=== PATIENT | female | born 1995 | race Caucasian/White ===

== ENCOUNTER 2021-06-08 11:59 | Outpatient (CLI) | payer OTHER, SELFPAY ==
[2021-06-08 12:42] LABS: Basophils Absolute Auto 0.1 K/mm3 (0.0-0.1); Basophils Percent Auto 0.7 % (0.2-1.2); Eosinophils Absolute Auto 0.1 K/mm3 (0-0.3); Eosinophils Percent Auto 1.2 % (0-4.4); Hematocrit 39.4 % (37.0-47.0); Hemoglobin 12.9 g/dL (12.0-15.0); Immature Granulocyte Absolute 0.02 K/mm3 (0.00-0.031); Immature Granulocyte Percent A 0.3 % (0-0.5); Lymphocytes Absolute Auto 2.01 K/mm3 (0.9-3.2); Lymphocytes Percent Auto 26.9 % (18.3-44.2); Mean Corpuscular HGB Conc 32.7 g/dl (32-36); Mean Corpuscular Hemoglobin 30.9 pg (26-34); Mean Corpuscular Volume 94.3 fl (80-100); Mean Platelet Volume 11.2 fl (7.4-10.4); Monocytes Absolute Auto 0.4 K/mm3 (0.1-0.6); Monocytes Percent Auto 5.9 % (2.6-8.5); Neutrophils Absolute Auto 4.9 K/mm3 (1.3-6.7); Platelet Count Result 247 k/mm3 (150-375); Red Blood Count 4.18 M/mm3 (4.2-5.4); White Blood Count 7.5 K/mm3 (4.5-10.0)
[2021-06-08 12:59] LABS: Alanine Aminotransferase 16 U/L (4-35); Albumin Level 4.5 g/dL (3.5-5.1); Alkaline Phosphatase 50 U/L (38-126); Amylase 77 U/L (30-110); Anion Gap 11 mmol/L (8-16); Aspartate Amino Transferase 27 U/L (14-36); Bilirubin,Total 0.5 mg/dL (0.2-1.3); Blood Urea Nitrogen 15 mg/dL (7-17); Calcium 9.3 mg/dL (8.4-10.2); Carbon Dioxide 22 mmol/L (22-30); Chloride 106 mmol/L (98-107); Estimated Glomerular Filt Rate > 60; Glucose 96 mg/dL (65-110); Lipase 61 U/L (23-300); Potassium 3.7 mmol/L (3.4-5.0); Sodium 139 mmol/L (137-145)
== END 2021-06-08 12:00 | disposition home or self-care (01) ==
PROVIDERS: PCP Family Medicine; Visit Provider Physician Assistant
DX: R19.7 Diarrhea, unspecified (principal)
CPT/HCPCS: 36415; 80053; 82150; 83690; 84443; 85025

== ENCOUNTER 2021-09-16 17:31 | Emergency (ER) | payer OTHER, SELFPAY ==
[2021-09-16 17:32] VITALS: BP 131/80; PULSE 110; RESP 20; TEMP 36.8; O2SAT 100
[2021-09-16 18:04] LABS: Appearance Urine Clear (Clear); Bilirubin Urine Negative (Negative); Blood Urine Negative (Negative); Glucose Urine UA Negative (Negative); Ketones Urine Negative (Negative); Leukocyte Esterase Ur Trace LEU/UL (Negative); Nitrate Urine Negative (Negative); Protein Urine Negative (Negative); Urobilinogen Urine 0.2 mg/dL (<2.0)
[2021-09-16 18:14] LABS: Bacteria Urine Trace /hpf; RBC Urine 0-2 /hpf (0-2); Squamous Epithelial Cell Urine Rare /hpf (Few); WBC Urine 0-3 /hpf
[2021-09-16 18:16] LABS: Add Urine Microscopic? YES; Color Urine Light Yellow (Yellow)
--- NOTE | 2021-09-16 18:45 | ED.GENADULT ---
HPI - General Adult General Chief complaint: Urogenital-Female Stated complaint: flank pain Time Seen by Provider: 09/16/21 17:37 History of Present Illness HPI narrative: 26-year-old female with history of urinary tract infection presenting to the emergency department for evaluation of bilateral flank pain. Patient states that the symptoms did start approximately 2 days ago. Patient does also describe lower extremity body aches. Patient denies any fever. Patient denies any cough or shortness of breath. Patient denies any falls or injuries. Patient denies any change in physical activity. Patient declined any medications for pain control at this time. Related Data Home Medications Medication Instructions Recorded Confirmed norethindrone 1 mg-ethinyl 1 tablet PO DAILY 05/04/19 06/08/21 estradiol 20 mcg (21)-iron 75 mg (7) tablet (05/10 (28)) spironolactone 100 mg tablet 100 mg PO DAILY 09/23/19 06/08/21 norethindrone acetate 1 mg-ethinyl tablet PO 08/17/21 estradiol 20 mcg tablet Allergies Allergy/AdvReac Type Severity Reaction Status Date / Time latex Allergy Unknown Rash Verified 08/17/21 11:45 Review of Systems Review of Systems: CONSTITUTIONAL: Denies fever, chills, or sweats. EYES: Denies visual changes, redness, or discharge. ENT: Denies rhinorrhea, congestion, sore throat, or otalgia. CARDIOVASCULAR: Denies chest pain, palpitations, or edema. RESPIRATORY: Denies cough or dyspnea. GASTROINTESTINAL: See HPI GENITOURINARY: See HPI SKIN: Denies rash or itching. MUSCULOSKELETAL: Denies back pain, joint pain, or myalgia. NEUROLOGIC: Denies headache, numbness, or weakness. All systems reviewed & are unremarkable except as noted in HPI and below PMFSH Social History Social History (Updated 08/17/21 @ 11:44 by ROLANDO Bueno) Alcohol intake: current Exam Narrative: APPEARANCE: Well appearing, no pain, no distress, well-nourished. HEAD: normocephalic, atraumatic. EYES: PERRLA/EOMI, conjunctivae clear. NECK: Supple. No adenopathy, no masses. RESPIRATORY: Airway patent, respirations nonlabored. Clear to auscultation bilaterally, no rales, rhonchi, wheezing. CARDIOVASCULAR: Regular rate and rhythm without murmurs rubs or gallops. ABDOMINAL: Soft, nontender, nondistended, normal bowel sounds MUSCULOSKELETAL: Bilateral lateral flank pain more tenderness on the right than left. No significant CVA tenderness NEURO: Alert. Cranial nerves II through XII intact. Good gait. Good coordination SKIN: Warm, dry. Normal Color Course Course Emergency Course: UA did show some leukoesterase but no other evidence of a urinary tract infection. Urine culture is pending. Patient has no leukocytosis. Normal CMP including creatinine clearance. Patient initially requested a CT scan I did explain that she does not qualify for a CT scan with IV contrast. I also explained that I did not feel that the risk of radiation. I did offer a CT scan and after patient was educated on the risks and benefits she ultimately declined to have the scan. Patient was educated on reasons to return to the emerge department. And on the importance of close follow-up with her primary care physician. All question concerns were addressed. Patient was well-appearing at time of discharge from the emergency department. Vital Signs Vital signs: Vital Signs Temperature 98.3 F 09/16/21 17:32 Pulse Rate 110 H 09/16/21 17:32 Respiratory Rate 20 09/16/21 17:32 Blood Pressure 131/80 09/16/21 17:32 Pulse Oximetry 100 09/16/21 17:32 Oxygen Delivery Room Air 09/16/21 17:32 Temperature 98.3 F 09/16/21 17:32 Pulse Rate 68 09/16/21 20:56 Respiratory Rate 14 09/16/21 20:56 Blood Pressure 140/88 09/16/21 20:56 Pulse Oximetry 96 09/16/21 20:56 Oxygen Delivery Room Air 09/16/21 17:32 Medical Decision Making Vital Signs Vital Signs: Vital Signs Temperature 98.3 F 09/16/21 17:32 Pulse Rate 110
[2021-09-16] MEDS: SODIUM CHLORIDE 0.9% IV 1,000 ML 999 ML IV CONT (19:05)
--- NOTE | 2021-09-16 19:10 | PC.NURSE ---
Patient report given to MARYCHUY Eckert. All questions answered and care of patient transferred.
[2021-09-16 19:17] LABS: Basophils Percent Auto 0.4 % (0.2-1.2); Eosinophils Absolute Auto 0.1 K/mm3 (0-0.3); Eosinophils Percent Auto 0.7 % (0-4.4); Hematocrit 37.8 % (37.0-47.0); Hemoglobin 12.5 g/dL (12.0-15.0); Immature Granulocyte Absolute 0.02 K/mm3 (0.00-0.031); Immature Granulocyte Percent A 0.2 % (0-0.5); Lymphocytes Absolute Auto 2.42 K/mm3 (0.9-3.2); Lymphocytes Percent Auto 28.6 % (18.3-44.2); Mean Corpuscular HGB Conc 33.1 g/dl (32-36); Mean Corpuscular Hemoglobin 30.5 pg (26-34); Mean Corpuscular Volume 92.2 fl (80-100); Monocytes Absolute Auto 0.6 K/mm3 (0.1-0.6); Monocytes Percent Auto 6.8 % (2.6-8.5); Neutrophils Absolute Auto 5.4 K/mm3 (1.3-6.7); Neutrophils Percent Auto 63.3 % (45.5-73.1); Platelet Count Result 278 k/mm3 (150-375); Red Cell Distribution Width 11.9 % (11.5-14.5); White Blood Count 8.5 K/mm3 (4.5-10.0)
[2021-09-16 19:27] LABS: Alanine Aminotransferase 16 U/L (6-35); Albumin Level 4.5 g/dL (3.5-5.1); Alkaline Phosphatase 61 U/L (38-126); Anion Gap 5 mmol/L (8-16); Aspartate Amino Transferase 27 U/L (14-36); Bilirubin,Total 0.5 mg/dL (0.2-1.3); Blood Urea Nitrogen 13 mg/dL (7-17); Calcium 8.9 mg/dL (8.4-10.2); Carbon Dioxide 26 mmol/L (22-30); Chloride 106 mmol/L (98-107); Estimated CRCL calculation 80 ml/min; Estimated Glomerular Filt Rate > 60; Glucose 90 mg/dL (65-110); Lactic Acid Reflex 0.7 mmol/L (0.7-2.0); Potassium 3.8 mmol/L (3.4-5.0); Sodium 137 mmol/L (137-145)
[2021-09-16 19:33] VITALS: BP 123/76; PULSE 91; RESP 16; O2SAT 97
[2021-09-16 19:55] LABS: SARS-CoV-2 RNA PCR Negative
[2021-09-16] MEDS: KETOROLAC 15 MG/ML VIAL (*BKC) IV PUSH (20:36)
[2021-09-16 20:56] VITALS: BP 140/88; PULSE 68; RESP 14; O2SAT 96
== END 2021-09-16 20:57 | disposition home or self-care (01) ==
PROVIDERS: Emergency Provider Emergency Medicine; PCP Family Medicine
DX: R10.9 Unspecified abdominal pain (principal); Z20.822 Contact with and (suspected) exposure to COVID-19
CPT/HCPCS: 36415; 80053; 81001; 81025; 83605; 85025; 96361; 96374; 99284; C9803; J1885; J7030; U0003; U0005

== ENCOUNTER 2022-10-14 15:33 | Outpatient (CLI) | payer OTHER, SELFPAY ==
--- NOTE | ~2022-10-14 | XR_ITS ---
EXAM: XR thoracic spine 3V DATE: 10/14/2022 15:52 HISTORY: M54.9 - Dorsalgia, unspecified . COMPARISON: 08/19/2014. FINDINGS: Vertebral body alignment intact. Vertebral body heights preserved. No disc space narrowing . No traumatic malalignment or fracture. Visualized lung parenchyma is clear. IMPRESSION: Normal thoracic spine radiograph findings. Reviewed, dictated and finalized at location K.
--- NOTE | ~2022-10-14 | XR_ITS ---
EXAM: XR lumbar spine 2-3V DATE: 10/14/2022 15:51 HISTORY: LOW BACK PAIN X 1 MONTH . COMPARISON: 08/19/2014. FINDINGS: 5 nonrib-bearing lumbar-type vertebral bodies. Pedicles intact. Normal vertebral body alig nment. Lumbar spine straightening as can occur with positioning or muscle spasm, unchanged from the p rior study. Vertebral body heights preserved. Disc spaces maintained. Normal facets and posterior al ments. No fracture or dislocation. IMPRESSION: Lumbar spine straightening, otherwise normal lumbar spine radiograph findings. Reviewed, dictated and finalized at location K. IMPRESSION: Lumbar spine straightening, otherwise normal lumbar spine radiograp h findings.
== END 2022-10-14 15:34 | disposition home or self-care (01) ==
PROVIDERS: PCP Family Medicine; Visit Provider Physician Assistant
DX: M54.50 Low back pain, unspecified (principal); M54.9 Dorsalgia, unspecified
CPT/HCPCS: 72072; 72100

== ENCOUNTER 2022-11-14 17:32 | Outpatient (CLI) | payer OTHER, SELFPAY | END 2022-11-14 17:33 | disposition home or self-care (01) | LOC: ANHLAB 17:33 | PROVIDERS: PCP Family Medicine; Visit Provider Obstetrics & Gynecology | DX: O20.0 Threatened abortion (principal) | CPT/HCPCS: 36415; 84702 ==

== ENCOUNTER 2022-11-16 07:40 | Outpatient (CLI) | payer OTHER, SELFPAY ==
[2022-11-16 08:27] LABS: Appearance Urine Cloudy (Clear); Bacteria Urine None Seen /hpf; Bilirubin Urine Negative (Negative); Blood Urine Negative (Negative); Color Urine Yellow (Yellow); Glucose Urine UA Negative (Negative); Ketones Urine Negative (Negative); Leukocyte Esterase Ur Negative LEU/UL (Negative); Nitrate Urine Negative (Negative); Non Pathogenic Casts 0-2; Protein Urine Negative (Negative); RBC Urine 0-2 /hpf (0-2); Specific Grav Ur 1.017 (1.001-1.035); Squamous Epithelial Cell Urine Occasional /hpf (Few); Urobilinogen Urine 0.2 mg/dL (<2.0); WBC Urine 0-5 /hpf
[2022-11-16 08:42] LABS: Add Urine Microscopic? YES
== END 2022-11-16 07:41 | disposition home or self-care (01) ==
PROVIDERS: PCP Family Medicine; Visit Provider Obstetrics & Gynecology
DX: O20.0 Threatened abortion (principal); R30.0 Dysuria; Z3A.00 Weeks of gestation of pregnancy not specified
CPT/HCPCS: 36415; 81001; 84702

== ENCOUNTER 2022-12-04 10:11 | Outpatient (CLI) | payer OTHER, SELFPAY ==
[2022-12-04 11:07] LABS: Basophils Percent Auto 0.4 % (0.2-1.2); Eosinophils Percent Auto 0.3 % (0-4.4); Hematocrit 36.7 % (37.0-47.0); Hemoglobin 12.1 g/dL (12.0-15.0); Immature Granulocyte Absolute 0.06 K/mm3 (0.00-0.031); Immature Granulocyte Percent A 0.5 % (0-0.5); Lymphocytes Absolute Auto 2.03 K/mm3 (0.9-3.2); Lymphocytes Percent Auto 18.3 % (18.3-44.2); Mean Corpuscular Hemoglobin 31.6 pg (26-34); Mean Corpuscular Volume 95.8 fl (80-100); Mean Platelet Volume 11.1 fl (7.4-10.4); Monocytes Absolute Auto 0.4 K/mm3 (0.1-0.6); Monocytes Percent Auto 3.9 % (2.6-8.5); Neutrophils Absolute Auto 8.5 K/mm3 (1.3-6.7); Neutrophils Percent Auto 76.6 % (45.5-73.1); Platelet Count Result 267 k/mm3 (150-375); Red Blood Count 3.83 M/mm3 (4.2-5.4); Red Cell Distribution Width 11.6 % (11.5-14.5); White Blood Count 11.1 K/mm3 (4.5-10.0)
[2022-12-04 11:58] LABS: HIV 1/2 Ab P24 Ag Result Negative (Negative)
[2022-12-04 13:54] LABS: Rapid Plasma Reagin Non-Reactive (NonReactive)
[2022-12-04 14:44] LABS: Hepatitis B Surface Antigen Negative (Negative); Rubella IgG Antibody 9.7 IU/ML
== END 2022-12-04 10:12 | disposition home or self-care (01) ==
LOC: ANHLAB 10:14
PROVIDERS: PCP Family Medicine; Visit Provider Obstetrics & Gynecology
DX: N94.89 Other specified conditions associated with female genital organs and menstrual cycle (principal)
CPT/HCPCS: 36415; 84702; 85025; 86592; 86644; 86703; 86747; 86762; 86787; 86850; 86900; 86901; 87086; 87088; 87340; G0432

== ENCOUNTER 2022-12-10 13:06 | Outpatient (CLI) | payer OTHER, SELFPAY ==
--- NOTE | ~2022-12-10 | US_ITS ---
EXAMINATION: US OB <=14 wk fetus w TV DATE: 12/10/2022 13:58 INDICATION: First trimester dating and viability assessment TECHNIQUE: Real-time pelvic transabdominal and transvaginal ultrasound was performed. COMPARISON: None. FINDINGS: The uterus measures 11.1 x 7.5 x 6.6 cm. The measured cervical length is 3.7 cm. There is a n intrauterine gestational sac. A yolk sac is identified. heart motion is identified measuring 165 beats per minute (bpm) by M-mode Doppler. The crown rump length measures 2.2 cm, which hailey elates with an estimated gestational age of 8 weeks and 6 day(s) (+/-) 6 day(s). The right ovary measures 2.3 x 1.3 x 2.0 cm. The left ovary measures 3.9 x 1.8 x 1.9 cm. There is nor mal vascular flow in the ovaries. There is no free fluid in the pelvis. IMPRESSION: 1. Live intrauterine with an estimated gestational age of 8 weeks and 6 day(s) (+/-) 6 day( s) and an estimated delivery date of 07/16/2023. Reviewed, dictated and finalized at location A. IMPRESSION: 1. Live intrauterine with an estimated gestational age of 8 weeks and 6 day(s) (+/-) 6 day(s) and an estimated delivery date of 07/16/2023.
== END 2022-12-10 13:07 | disposition home or self-care (01) ==
LOC: ANHIMG 13:08
PROVIDERS: PCP Family Medicine; Visit Provider Obstetrics & Gynecology
DX: Z36.87 Encounter for antenatal screening for uncertain dates (principal); N94.89 Other specified conditions associated with female genital organs and menstrual cycle; Z3A.08 8 weeks gestation of pregnancy
CPT/HCPCS: 76801; 76817

== ENCOUNTER 2022-12-27 10:35 | Outpatient (CLI) | payer OTHER, SELFPAY | END 2022-12-27 10:36 | disposition home or self-care (01) | LOC: ANHLAB 10:37 | PROVIDERS: PCP Family Medicine; Visit Provider Obstetrics & Gynecology | DX: Z34.90 Encounter for supervision of normal pregnancy, unspecified, unspecified trimester (principal); R30.0 Dysuria | CPT/HCPCS: 87086 ==

== ENCOUNTER 2023-02-21 09:31 | Outpatient (CLI) | payer OTHER, SELFPAY ==
--- NOTE | ~2023-02-21 | US_ITS ---
EXAMINATION: US OB /maternal detail DATE: 02/21/2023 10:34 INDICATION: Encounter for supervision of normal TECHNIQUE: Multiple obstetric sonographic images performed. FINDINGS: Comparison to ultrasound dated 12/10/2022 There is a single living fetus in breech presentation. The placenta is anterior without placenta pre via. Placental margin to the cervix is 4.2 cm. Amniotic fluid volume is subjectively normal. cardiac activity and movement is noted with a heart rate of 136 beats per minute. The following anatomy was identified as normal: 4 chamber heart 3 vessel cord cord insertion kidneys urinary bladder stomach spine diaphragm ventricles cisterna magna cerebellum The following biometric data were obtained: BPD: 43mm corresponds to gestational age 19 weeks 0 days. Head circumference: 168 mm corresponds to gestational age 19 weeks 3 days. Abdominal circumference: 146 mm corresponds to gestational age 19 weeks 6 days. Femur length: 31 mm corresponds to gestational age 19 weeks 3 days. Head circumference to abdominal circumference ratio: 0.15 (normal range for expected gestational age is 1.08-1.26). Estimated weight: 306 grams +/- 46 grams using Hadlock method 68.1%. IMPRESSION: 1: Single living intrauterine with an estimated gestational age of 19weeks 2days by initial ultrasound measurements, with an EDC of 07/16/2023 in breech presentation. 2. Normal survey. Reviewed, dictated and finalized at location A. IMPRESSION: 1: Single living intrauterine with an estimated gestational age of 19 weeks 2days by initial ultrasound measurements, with an EDC of 07/16/2023 in ry ech presentation. 2. Normal survey.
== END 2023-02-21 09:32 | disposition home or self-care (01) ==
LOC: ANHIMG 09:35
PROVIDERS: PCP Family Medicine; Visit Provider Student in an Organized Health Care Education/Training Program
DX: Z34.90 Encounter for supervision of normal pregnancy, unspecified, unspecified trimester (principal); Z3A.00 Weeks of gestation of pregnancy not specified
CPT/HCPCS: 76805

== ENCOUNTER 2023-04-19 08:13 | Outpatient (CLI) | payer OTHER, SELFPAY ==
[2023-04-19 09:46] LABS: Basophils Percent Auto 0.4 % (0.2-1.2); Eosinophils Absolute Auto 0.1 K/mm3 (0-0.3); Eosinophils Percent Auto 0.7 % (0-4.4); Hematocrit 33.1 % (37.0-47.0); Hemoglobin 10.7 g/dL (12.0-15.0); Immature Granulocyte Absolute 0.13 K/mm3 (0.00-0.031); Immature Granulocyte Percent A 1.4 % (0-0.5); Mean Corpuscular HGB Conc 32.3 g/dl (32-36); Mean Corpuscular Hemoglobin 31.1 pg (26-34); Mean Corpuscular Volume 96.2 fl (80-100); Mean Platelet Volume 11.4 fl (7.4-10.4); Monocytes Absolute Auto 0.5 K/mm3 (0.1-0.6); Monocytes Percent Auto 5.3 % (2.6-8.5); Neutrophils Absolute Auto 6.8 K/mm3 (1.3-6.7); Neutrophils Percent Auto 72.2 % (45.5-73.1); Platelet Count Result 234 k/mm3 (150-375); Red Blood Count 3.44 M/mm3 (4.2-5.4); Red Cell Distribution Width 12.7 % (11.5-14.5); White Blood Count 9.5 K/mm3 (4.5-10.0)
[2023-04-19 10:01] LABS: Glucose 1 Hour PP 50gm Dose 106 mg/dL
[2023-04-19 10:45] LABS: HIV 1/2 Ab P24 Ag Result Negative (Negative)
== END 2023-04-19 08:14 | disposition home or self-care (01) ==
LOC: ANHLAB 08:15
PROVIDERS: PCP Family Medicine; Visit Provider Obstetrics & Gynecology
DX: Z34.90 Encounter for supervision of normal pregnancy, unspecified, unspecified trimester (principal); Z3A.00 Weeks of gestation of pregnancy not specified
CPT/HCPCS: 36415; 82947; 85025; 86703; G0432

== ENCOUNTER 2023-05-15 12:48 | Outpatient (CLI) | payer OTHER, SELFPAY | END 2023-05-15 12:49 | disposition home or self-care (01) | LOC: ANHLAB 12:49 | PROVIDERS: PCP Family Medicine; Visit Provider Obstetrics & Gynecology | DX: O26.899 Other specified pregnancy related conditions, unspecified trimester (principal); R35.0 Frequency of micturition; Z3A.00 Weeks of gestation of pregnancy not specified | CPT/HCPCS: 87086 ==

== ENCOUNTER 2023-06-20 09:43 | Outpatient (CLI) | payer OTHER, SELFPAY ==
--- NOTE | ~2023-06-20 | US_ITS ---
EXAMINATION: US OB follow up DATE: 06/20/2023 INDICATION: Contracture for supervision of normal TECHNIQUE: Real-time ultrasound of the pelvis was performed. The interpreting radiologist was not pre sent for the study. COMPARISON: 02/21/2023 FINDINGS: There is a single living fetus in vertex presentation. The placenta is anterior. heart rate is 144 beats per minute (bpm). The amniotic fluid index is 7.0 cm, which is normal (5th%-95%: 7.7-24.9 cm at 36 weeks estimated gestational age). The following biometric data were obtained: BPD: 8.8 cm -> 35 weeks 5 days Head circumference: 32.5 cm -> 36 weeks 6 days Abdominal circumference: 33.6 cm -> 37 weeks 4 days Femur length: 7.0 cm -> 36 weeks 0 days These measurements are concordant. Head circumference to abdominal circumference ratio: 0.97 (normal range 0.92-1.06). Estimated weight: 3049 g (+/-) 457 g or 6 lbs. 12 oz. (+/-) 1 lb. 0 oz. IMPRESSION: 1. Single living fetus in vertex presentation with heart rate of 144 bpm. 2. Oligohydramnios with amniotic fluid index of 7.0 cm (5th%-95%: 7.7-24.9 cm at 36 weeks estimated g estational age). 3. Estimated weight is 68th percentile by Hadlock criteria when 07/16/23 is used as the estimate d date of delivery (BONNY). Please correlate with clinical information or earlier ultrasounds for most accurate BONNY. Reviewed, dictated and finalized at location B. [employer] IMPRESSION: 1. Single living fetus in vertex presentation with heart rate of 144 bpm. 2. Oligohydramnios with amniotic fluid index of 7.0 cm (5th%-95%: 7.7-24.9 cm a t 36 weeks estimated gestational age). 3. Estimated weight is 68th percentile by Hadlock criteria when 07/16/23 i s used as the estimated date of delivery (BONNY). Please correlate with clinical information or earlier ultrasounds for most accurate BONNY.
== END 2023-06-20 09:44 | disposition home or self-care (01) ==
LOC: ANHIMG 09:44
PROVIDERS: PCP Family Medicine; Visit Provider Obstetrics & Gynecology
DX: Z34.90 Encounter for supervision of normal pregnancy, unspecified, unspecified trimester (principal)
CPT/HCPCS: 76816

== ENCOUNTER 2023-06-27 13:49 | Outpatient (CLI) | payer OTHER, SELFPAY ==
--- NOTE | ~2023-06-27 | US_ITS ---
EXAMINATION: US OB BPP wo non-stress DATE: 06/27/2023 15:19 INDICATION: Encounter for supervision of normal during third trimester TECHNIQUE: Real-time pelvic ultrasound was performed. The interpreting radiologist was not present fo r the study. COMPARISON: 06/20/2023 FINDINGS: There is a single living fetus in vertex presentation. The placenta is anterior. heart rate is 132 beats per minute (bpm). Normal amniotic fluid index of 8.8 cm (5th%-95%: 7.5-24.4 cm at 37 weeks estimated gestational age) Biophysical profile performed by the technologist: breathing (30 sec sustained breathing in 30 minutes): 2 out of 2 movement (3 gross body movements in 30 minutes): 2 out of 2 tone (one episode of fnagkkj-hmcxsqoli-pprjdub limb movement): 2 out of 2 Amniotic fluid pocket (2 cm): 2 out of 2 Total score: 8 out of 8 IMPRESSION: 1. Single living fetus in vertex presentation with heart rate of 132 bpm. 2. Biophysical profile 8 out of 8. 3. Normal amniotic fluid index of 8.8 cm. Reviewed, dictated and finalized at location A. 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
== END 2023-06-27 13:50 | disposition home or self-care (01) ==
LOC: ANHIMG 13:51
PROVIDERS: PCP Family Medicine; Visit Provider Obstetrics & Gynecology
DX: Z34.90 Encounter for supervision of normal pregnancy, unspecified, unspecified trimester (principal)
CPT/HCPCS: 76819

== ENCOUNTER 2023-07-08 16:51 | Inpatient (IN) | payer OTHER, SELFPAY ==
[2023-07-08] VITALS (15 sets, daily range): BP systolic 99–132; BP diastolic 59–87; PULSE 76–111; RESP 16–18; TEMP 36.5; BMI 29.5
--- NOTE | 2023-07-08 17:09 | LDADM ---
This patient, Adrianna Siddiqi, was admitted to Labor/Delivery/Recovery 104 on 07/08/23 at 15:51. Plans for labor, pain management and were discussed with patient. Patient/family oriented to hospital policies and general routines including ID bracelet, bed and alarms, visiting hours, pain management, procedures, bathroom and other care routines, personal items, smoking policy, room service/diet and guest tray routines, security routines, and visiting hours. Patient/Family are encouraged to report perceived risks to care and to ask questions if they do not understand what they are told or what they should do. See OBIX for further documentation.
[2023-07-08 17:19] LABS: Basophils Percent Auto 0.4 % (0.2-1.2); Eosinophils Percent Auto 0.4 % (0-4.4); Hematocrit 35.1 % (37.0-47.0); Hemoglobin 11.7 g/dL (12.0-15.0); Immature Granulocyte Absolute 0.18 K/mm3 (0.00-0.031); Immature Granulocyte Percent A 1.8 % (0-0.5); Lymphocytes Absolute Auto 2.24 K/mm3 (0.9-3.2); Lymphocytes Percent Auto 22.6 % (18.3-44.2); Mean Corpuscular HGB Conc 33.3 g/dl (32-36); Mean Corpuscular Hemoglobin 31.4 pg (26-34); Mean Corpuscular Volume 94.1 fl (80-100); Mean Platelet Volume 12.6 fl (7.4-10.4); Monocytes Absolute Auto 0.7 K/mm3 (0.1-0.6); Monocytes Percent Auto 7.5 % (2.6-8.5); Neutrophils Absolute Auto 6.7 K/mm3 (1.3-6.7); Neutrophils Percent Auto 67.3 % (45.5-73.1); Platelet Count Result 183 k/mm3 (150-375); Red Blood Count 3.73 M/mm3 (4.2-5.4); Red Cell Distribution Width 13.1 % (11.5-14.5); White Blood Count 9.9 K/mm3 (4.5-10.0)
[2023-07-08] MEDS: DINOPROSTONE 10 MG VAG INSERT VAGINAL (17:35)
--- NOTE | 2023-07-08 17:48 | PC.NURSE ---
Patient has history of HSV2. Patient states her significant other is aware and she has never had an outbreak. Patient currently denies any pain, itching, or tingling. Bright light exam performed. No outbreaks noted at this time.
--- NOTE | 2023-07-08 18:39 | WPDANESEPP ---
Anes - Eval Pre Procedure Procedure: Labor epidural Date/Time: 07/08/23 18:39 Surgeon: Bronson Preop Diagnosis: Abdominal pain with contractions Pre Op Diagnosis: iol Patient Data Age: 28 Gender: F Height: 1.63 m Weight: 78 kg Last Vital Signs Pulse 97 07/08/23 18:30 BP 108/71 07/08/23 18:30 O2 Del Method Room Air 07/08/23 17:07 Allergies Allergy/AdvReac Type Severity Reaction Status Date / Time latex Allergy Unknown Rash Verified 07/08/23 17:19 Home Medications Medication Instructions Recorded Confirmed Type valacyclovir 500 mg tablet 500 mg PO Q12H #90 tabs 06/18/23 07/01/23 Rx (Valtrex) sertraline 50 mg tablet See Rx Instructions .Route 06/26/23 07/01/23 Rx .COMPLEX #90 tabs vits no.126-ferrous fum 1 tablet PO DAILY 07/01/23 07/01/23 History 28 mg iron-folic acid 800 mcg tablet (Classic ) Laboratory Tests 07/08/23 17:02 WBC 9.9 K/mm3 (4.5-10.0) RBC 3.73 L M/mm3 (4.2-5.4) Hgb 11.7 L g/dL (12.0-15.0) Hct 35.1 L % (37.0-47.0) MCV 94.1 fl (80-100) MCH 31.4 pg (26-34) MCHC 33.3 g/dl (32-36) RDW 13.1 % (11.5-14.5) Plt Count 183 k/mm3 (150-375) MPV 12.6 H fl (7.4-10.4) Immature Gran % (Auto) 1.8 H % (0-0.5) Neut % (Auto) 67.3 % (45.5-73.1) Lymph % (Auto) 22.6 % (18.3-44.2) [place] % (Auto) 7.5 % (2.6-8.5) Eos % (Auto) 0.4 % (0-4.4) Baso % (Auto) 0.4 % (0.2-1.2) Lymph # (Auto) 2.24 K/mm3 (0.9-3.2) [place] # (Auto) 0.7 H K/mm3 (0.1-0.6) Eos # (Auto) 0.0 K/mm3 (0-0.3) Baso # (Auto) 0.0 K/mm3 (0.0-0.1) Abs Immat Gran (auto) 0.18 H K/mm3 (0.00-0.031) Absolute Neuts (auto) 6.7 K/mm3 (1.3-6.7) Absolute Nucleated RBC 0.000 K/mm3 (0.0-0.012) Nucleated RBC % 0.0 % (0.0-0.2) RPR Pending Blood Type A Positive Antibody Screen Pending : gestational age HCG: positive Patient hx anesthesia problems: none Family hx anesthesia problems: none Results Review: All pre-operative results and documents have been reviewed as part of the pre-operative evaluation. [facility] Past Medical History Medical History Anxiety Ganglion, left wrist Generalized headaches HSV-2 (herpes simplex virus 2) infection Menorrhagia with regular cycle Pyelonephritis Surgical History Surgical History H/O colposcopy with cervical biopsy normal per pt Family History Family History Grandparent Breast cancer Carcinoma of colon Social History Social History Smoking status: Former smoker Tobacco type: e-cigarettes/vaping Smoking end date: 06/19/22 Alcohol intake: never Substance use: never Substance use type: does not use Do You Feel Safe in your Home?: Yes Lack of Transportation: No Lack of Food: Never True Current Housing: I Have Housing Concerned About Future Housing: No Difficulty Paying Gas/Electric Bills: No Difficulty Paying for Meds: No Currently Unemployed: No Education: Associate Degree Difficulty w/ Childcare or Family Care: No Living arrangements: with family Occupation/Education: occupation Additional occupation/education comments: [employer] Gender identity (if verbalized by the patient): Female Sexual Orientation (if Verbalized by the Patient): Straight or Heterosexual Spiritual care concerns: No Exam Day of Procedure 07/08/23 18:39 Patient weight: overweight
--- NOTE | 2023-07-08 20:19 | PM.IMHP ---
H&P: HPI History of Present Illness Date/Time: 07/08/23 20:19 Chief Complaint: Induction of labor Narrative: Adrianna is a 28yo @ 39.0wks who presented for elective IOL. She reports good movement. No vb or lof. She has had regular . Her is complicated by: - HSV 2 on daily suppression - Depression on zoloft - Rubella equivocal - H/o UTI/pyelo - Chronic headaches Review of Systems Constitutional: Constitutional: Denies chills, Denies fever(s) and Denies headache(s) Eyes: Eyes: Denies change in vision ENT: Denies headache(s) Cardiovascular: Cardiovascular: Denies chest pain and Denies dyspnea Respiratory: Respiratory: Denies dyspnea Genitourinary: Genitourinary: Denies abnormal vaginal bleeding and Denies vaginal discharge Neurologic: Denies headache(s) Psychiatric: Psychiatric: Denies anxiety and Denies depression PMFSH Past Medical History Medical History Anxiety Ganglion, left wrist Generalized headaches HSV-2 (herpes simplex virus 2) infection Menorrhagia with regular cycle Pyelonephritis Surgical History Surgical History H/O colposcopy with cervical biopsy normal per pt Family History Family History Grandparent Breast cancer Carcinoma of colon Social History Social History Smoking status: Former smoker Tobacco type: e-cigarettes/vaping Smoking end date: 06/19/22 Alcohol intake: never Substance use: never Substance use type: does not use Do You Feel Safe in your Home?: Yes Lack of Transportation: No Lack of Food: Never True Current Housing: I Have Housing Concerned About Future Housing: No Difficulty Paying Gas/Electric Bills: No Difficulty Paying for Meds: No Currently Unemployed: No Education: Associate Degree Difficulty w/ Childcare or Family Care: No Living arrangements: with family Occupation/Education: occupation 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 Gender identity (if verbalized by the patient): Female Sexual Orientation (if Verbalized by the Patient): Straight or Heterosexual Spiritual care concerns: No Meds Home Medications and Allergies Home Medications Medication Instructions Recorded Confirmed Type valacyclovir 500 mg tablet 500 mg PO Q12H #90 tabs 06/18/23 07/01/23 Rx (Valtrex) sertraline 50 mg tablet See Rx Instructions .Route 06/26/23 07/01/23 Rx .COMPLEX #90 tabs vits no.126-ferrous fum 1 tablet PO DAILY 07/01/23 07/01/23 History 28 mg iron-folic acid 800 mcg tablet (Classic ) Allergies Allergy/AdvReac Type Severity Reaction Status Date / Time latex Allergy Unknown Rash Verified 07/08/23 17:19 Vital Signs Vital Signs - 24 hr 07/08/23 17:06 07/08/23 17:15 07/08/23 17:39 Temperature Pulse Rate 111 H 96 98 Respiratory Rate Blood Pressure 132/84 117/78 99/59 L Oxygen Delivery 07/08/23 18:00 07/08/23 18:30 07/08/23 19:00 Temperature 97.7 F Pulse Rate 83 97 78 Respiratory Rate 16 16 16 Blood Pressure 120/78 108/71 113/72 Oxygen Delivery 07/08/23 19:30 07/08/23 20:00 07/08/23 17:07 Temperature Pulse Rate 77 98 Respiratory Rate 18 Blood Pressure 119/76 106/87 Oxygen Delivery Room Air Exam Const: General: cooperative, healthy appearing, comfortable and no acute distress Nutritional Appearance: obese Orientation/consciousness: patient oriented x3 Resp: Effort & Inspection: normal respiratory effort Cardio: Rate: regular rate GI: GI Palp: No abdominal tenderness : Other: FHT's: 150's/ mod vanessa/ + accels/ no decels - cat 1 TOCO: irregular ctxs q5min Cervix: 2/50/-2 Membranes: intact Presentation: cephalic Skin: General skin exam: normal color Neuro
[2023-07-09] VITALS (201 sets, daily range): BP systolic 90–137; BP diastolic 44–86; PULSE 55–144; RESP 6–16; TEMP 36.3–37.3; O2SAT 93–100
[2023-07-09] MEDS: LACTATED RINGERS 1,000 ML 125 ML IV CONT ×2 (02:38→10:28)
[2023-07-09] MEDS: OXYTOCIN 30 UNITS/NS 500 ML 30 UNITS/500 ML BAG IV CONT (04:02)
[2023-07-09] MEDS: ONDANSETRON INJ 4 MG/2 ML VIAL IV PUSH (05:46)
--- NOTE | 2023-07-09 07:16 | PM.OBPNLAB ---
Pain Control Date/time seen: 07/09/23 07:16 Pain control: epidural Pelvic Exam Dilation (cm): 7 Effacement (%): 90 station: -1 Amniotic membrane status: Ruptured (SROM, clear 0130) Contractions Monitor mode: Internal Contraction frequency: 3 Status status: Category ll (occasional variable) Assessment and Plan Pitocin rate (mU/min): 6 Assessment: active labor Plan: continuous present management
[2023-07-09 08:47] LABS: Rapid Plasma Reagin Non-Reactive (NonReactive)
--- NOTE | 2023-07-09 13:11 | PM.OBPRVD ---
OB - Vaginal Delivery Note Procedure Delivery date: 07/09/23 Events: Elective Induction of Labor Induction method: Per Cervidil Protocol Delivery augmentation: Rupture of Membranes and Pitocin Delivery monitor: External FHT and Internal Uterine Route of delivery: Laceration Description: Vaginal (left) Delivery repair: vicryl Specimen: Yes (placenta, right mons mole) Quantitative Blood Loss (ml): 300 Anesthesia type: Epidural Disposition: Floor Complications: No immediate complications Baby Date of : 07/09/23 Time of : 12:37 Weeks of gestation at delivery: 39 (.1) gender: Female presentation: vertex position: Other (direct OP) Placenta delivery description: Expressed Cord Vessel Description: 3 Vessels and Delayed Cord Clamping score one minute: 9 score five minutes: 9 Narrative: Adrianna progressed to complete dilation with strong desire to push. She pushed for approximately 35 minutes with good maternal effort. She delivered the head without complications, direct OP. Nuchal cord was palpated but loose and delivered through. She easily delivered the 's shoulders and body without complication. The was immediately placed skin to skin and had spontaneous cry. The pediatric team was present for delivery and bulb suctioned the 's mouth and nose. Delayed cord clamping was performed. The umbilical cord was then doubly clamped and cut. A segment of the cord was collected for cord gases. The remaining cord blood was collected for typing. With Pitocin running and gentle downward traction on the cord, the placenta delivered without complications bimanual massage was performed and good uterine tone with minimal bleeding was noted. She was examined and only a small left vaginal laceration at the hymen was noted, but was bleeding. The laceration was repaired using a 3-0 Vicryl in a qchumd-pu-gjmsx stitch and good hemostasis was noted. Patient did have a large mole on her mons that she desired to have removed. The mole was cut at its base and the base was reapproximated using the 3-0 Vicryl and good hemostasis was noted. Bimanual massage was once again performed and good uterine tone with minimal bleeding was noted. Sponge, lap, instrument, and needle counts were correct at the end procedure. Mom and baby were left bonding in the birthing suite in stable condition. [facility] Delivery Billing Delivery Delivery: Delivery Charge
[2023-07-09] MEDS: OXYTOCIN 30 UNITS/NS 500 ML 30 UNITS/500 ML BAG 125 UNITS IV CONT (13:15)
[2023-07-09] MEDS: SERTRALINE HCL 50 MG TABLET PO (15:49)
--- NOTE | 2023-07-09 16:25 | OBPPTRN ---
Patient transferred to post room #292 via wheelchair. Support person present. Oriented to unit, room, information board, rooming in, admission packet and security measures. Patient verbalizes understanding.
[2023-07-09] MEDS: ACETAMINOPHEN 325 MG TABLET 650 MG PO (17:24)
[2023-07-09] MEDS: DOCUSATE SODIUM 100 MG CAPSULE PO (17:25)
[2023-07-09] MEDS: IBUPROFEN 600 MG TABLET PO (20:13)
[2023-07-10] MEDS: ACETAMINOPHEN 325 MG TABLET 650 MG PO ×4 (03:57→23:17)
[2023-07-10] MEDS: diphenhydrAMINE HCl CAP 25 MG CAPSULE PO ×2 (04:10→21:18)
--- NOTE | 2023-07-10 04:36 | P.PNOB_ITS ---
OB - PN: Subj Subjective Date/time seen: 07/10/23 04:40 Narrative: PPD#1 Adrianna reports doing well today, just very tired as she has not been able to sleep. 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 Her pain is controlled. She is tolerating regular diet, voiding, passing gas, and ambulating without issues. She is bottle feeding. OB - PN: Obj Data Labs 07/08/23 17:02 Labs: Laboratory Results - last 24 hr 07/08/23 17:02 RPR Non-reactive OB - PN A/P Assessment and Plan (1) Normal vaginal delivery of first : Code(s): O80 - Encounter for full-term uncomplicated delivery Status: Acute Plan day: 1 Plan: routine care and discharge home (tomorrow) Comments: - PO pain meds - Regular diet - Ambulation and hydration encouraged - Continue putting baby to breast q2-3hr Time Spent With Patient Time: Total time spent is greater than 50% in coordination of care (as documented) at patient's floor/unit and/or counseling patient: Review of Systems Constitutional: Constitutional: Denies chills, Denies fever(s) and Denies headache(s) Eyes: Eyes: Denies change in vision ENT: Denies dizziness and Denies headache(s) Cardiovascular: Cardiovascular: Denies chest pain, Denies palpitations and Denies dyspnea Respiratory: Respiratory: Denies cough and Denies dyspnea Gastrointestinal: Gastrointestinal: Denies nausea and Denies vomiting Neurologic: Denies dizziness and Denies headache(s) Endocrine: Endocrine: Denies palpitations Exam Const: General: cooperative, healthy appearing, comfortable and no acute distress Orientation/consciousness: patient oriented x3 Resp: Effort & Inspection: normal respiratory effort Auscultation: clear to auscultation bilaterally Cardio: Rate: regular rate GI: Inspection: non-distended GI Palp: No abdominal tenderness and Yes Soft to palpation Auscultation: normal bowel sounds : Other: fundus firm Skin: General skin exam: normal color Neuro: General: patient oriented x3 Extrem: General: normal to inspection Psych: Appearance: grossly normal Affect: normal affect Attitude: cooperative
[2023-07-10 05:12] LABS: Hematocrit 36.4 % (37.0-47.0); Hemoglobin 11.8 g/dL (12.0-15.0)
[2023-07-10 07:30] VITALS: BP 117/69; PULSE 59; RESP 16; TEMP 37; O2SAT 100
[2023-07-10] MEDS: DOCUSATE SODIUM 100 MG CAPSULE PO ×2 (07:48→16:35)
[2023-07-10] MEDS: IBUPROFEN 600 MG TABLET PO ×3 (07:48→19:50)
[2023-07-10] MEDS: SERTRALINE HCL 50 MG TABLET PO (11:57)
--- NOTE | 2023-07-10 13:46 | WPDANLDPN2 ---
Anes-Prog Note L&D Date/Time: 07/10/23 13:46 Comfortable throughout: labor and delivery Neuraxial method: epidural Epidural/Spinal procedure site: tender Neuro status: Neuro function grossly intact. Cardiovascular status: normal Respiratory status: normal Airway patency: baseline Mental status: baseline Post-Op hydration status: normal Vital Signs: Last Vital Signs Temp 37.0 C 07/10/23 07:30 Pulse 59 L 07/10/23 07:30 Resp 16 07/10/23 07:30 BP 117/69 07/10/23 07:30 Pulse Ox 100 07/10/23 07:30 O2 Del Method Room Air 07/10/23 07:40 Pain score (VAS): 3/10 Post-procedural complaints: none Patient feedback: Patient satisfied with anesthetic care.
[2023-07-10 19:43] VITALS: BP 120/72; PULSE 72; RESP 16; TEMP 36.3
[2023-07-11] MEDS: IBUPROFEN 600 MG TABLET PO ×2 (03:34→12:28)
--- NOTE | 2023-07-11 06:48 | PM.OBDSVD ---
DS: Admitting Diagnosis Discharge Date 07/11/23 Admitting Diagnosis Elective IOL DS: Discharge Diagnosis Discharge Diagnosis (1) Normal vaginal delivery of first : Code(s): O80 - Encounter for full-term uncomplicated delivery Status: Acute OB - DS: Summary OB Procedures : Ultrasound OB Procedures Intrapartum: Spontaneous Vag Delivery OB Procedures: : Rubella lg Peripartum Data Infant Delivery Method: Natural Vaginal Laceration Description: Vaginal (left) Episiotomy description: None complications: none [place] 1: Gender: Male Disposition of : home Status at Discharge Functional status at discharge: independent ambulation Overall status at discharge: patient is back to baseline Time Spent with Patient Time attestation: Total time spent providing and/or coordinating discharge services: Exam Const: General: cooperative, healthy appearing, comfortable and no acute distress Orientation/consciousness: patient oriented x3 Resp: Effort & Inspection: normal respiratory effort Auscultation: clear to auscultation bilaterally Cardio: Rate: regular rate GI: Inspection: non-distended GI Palp: No abdominal tenderness and Yes Soft to palpation Auscultation: normal bowel sounds : Other: fundus firm Skin: General skin exam: normal color Neuro: General: patient oriented x3 Extrem: General: normal to inspection Psych: Appearance: grossly normal Affect: normal affect Attitude: cooperative DS: Data Data Completed and Pending Pending studies at discharge: Pending at discharge 07/09/23 12:40 Surgical [PTH] Routine Surgical [PTH] Routine Discharge Plan Discharge Attending physician on discharge: Aida Dobson Discharging Clinician: Aida Dobson Anticipated Discharge Date/Time: 07/11/23 10:00 Patient Disposition: Home, Self-Care Activity: may shower and pelvic rest Diet: regular Patient Instructions: Vaginal Delivery (DC) Stand Alone Forms: General Discharge Information Follow-up/Referrals: Aida Dobson MD [Physician] - 4 Weeks Discharge Medications: New acetaminophen 325 mg Tablet 650 mg PO Q6H PRN (Reason: Mild Pain (1-3) Or Headache) Qty: 100 0RF docusate sodium 100 mg Capsule 100 mg PO BID PRN (Reason: Constipation) Qty: 100 0RF ibuprofen 600 mg Tablet 600 mg PO Q6H PRN (Reason: Cramping) Qty: 40 0RF Continued sertraline 50 mg tablet See Rx Instructions .ROUTE .COMPLEX Qty: 90 3RF Dose Instruction: TAKE 1 TABLET BY MOUTH EVERY DAY Rx Instructions: TAKE 1 TABLET BY MOUTH EVERY DAY-NEEDS APPOINTMENT FOR FURTHER REFILLS. Classic 28 mg iron- 800 mcg Tablet 1 tablet PO DAILY Discontinued valacyclovir [Valtrex] 500 mg tablet 500 mg PO Q12H Qty: 90 2RF Date of admission: 07/08/23 16:51 Primary Care Provider: Gaurang Carrillo Admitting Provider: Aida Dobson Attending physician on admission: Aida Dobson Condition: Stable
--- NOTE | 2023-07-11 08:30 | PC.NURSE ---
Patient instructed to view the discharge video Mother & Baby Care, The First Two Weeks online. Patient was given the opportunity and encouraged to ask questions. Patient verbalized understanding of information shared and has been given the mother/baby guide for home reference.
[2023-07-11] MEDS: ACETAMINOPHEN 325 MG TABLET 650 MG PO (08:43)
[2023-07-11] MEDS: DOCUSATE SODIUM 100 MG CAPSULE PO (08:43)
[2023-07-11] MEDS: MEASLES,MUMPS,RUBELLA VACCINE 0.5 ML VIAL SUB-Q (08:44)
[2023-07-11 08:45] VITALS: BP 106/66; PULSE 63; RESP 16; TEMP 36.7; O2SAT 98
[2023-07-11] MEDS: SERTRALINE HCL 50 MG TABLET PO (12:28)
[2023-07-12 11:15] VITALS: BP 110/68; PULSE 78; RESP 18; TEMP 36.7; O2SAT 100
== END 2023-07-11 13:51 | disposition home or self-care (01) | DRG 768 ==
LOC: ANHLDR 17:15 → ANHOB2 07-09 16:40
PROVIDERS: Admitting Provider Obstetrics & Gynecology; PCP Family Medicine; Visit Provider Obstetrics & Gynecology
DX: O98.52 Other viral diseases complicating childbirth (principal); Z37.0 Single live birth; B00.9 Herpesviral infection, unspecified; O99.344 Other mental disorders complicating childbirth; F32.A Depression, unspecified; O70.0 First degree perineal laceration during delivery; O69.81X0 Labor and delivery complicated by cord around neck, without compression, not applicable or unspecified; Z3A.39 39 weeks gestation of pregnancy; D28.0 Benign neoplasm of vulva
CPT/HCPCS: 36415; 85014; 85018; 85025; 86592; 86850; 86900; 86901; 88305; 88307; 90710; A9270; J2405; J2590; J2795; J7120

== ENCOUNTER 2023-10-22 09:03 | Emergency (ER) | payer OTHER, SELFPAY ==
[2023-10-22 09:20] VITALS: BP 105/71; PULSE 69; RESP 16; TEMP 36.9; O2SAT 99
[2023-10-22 09:27] LABS: EDUAAPPEAR Clear; EDUABILI Negative; EDUABLOOD Trace; EDUACOLOR1 Light/Pale; EDUAGLUCOSE Negative; EDUAKETONE Negative; EDUALEUKO Negative; EDUANITRATE Negative; EDUAPROTEIN Negative; EDUAUROBILI 0.2
--- NOTE | 2023-10-22 09:34 | ED.FEMALEGU ---
HPI - Female Genitourinary General Chief complaint: Urogenital-Female Stated complaint: urinary issue Time Seen by Provider: 10/22/23 09:28 Source: patient and RN notes reviewed Mode of arrival: ambulatory Limitations: no limitations History of Present Illness HPI Narrative: Patient presents today with a 2 day history of suprapubic pressure, frequency, urgency, hesitancy. She has been taking ibuprofen which has provided some relief. She is not currently menstruating. History of pyelonephritis with hospitalization in the past. Related Data Allergies Allergy/AdvReac Type Severity Reaction Status Date / Time latex Allergy Intermediate Rash Verified 10/22/23 09:25 Review of Systems Review of Systems: CONSTITUTIONAL: Denies body aches, fever, chills, or sweats. EYES: Denies visual changes, redness, or discharge. ENT: Denies rhinorrhea, congestion, sore throat, or otalgia. CARDIOVASCULAR: Denies chest pain, palpitations, or edema. RESPIRATORY: Denies cough or dyspnea. GASTROINTESTINAL: Denies abdominal pain, nausea, vomiting, or diarrhea. GENITOURINARY: + frequency, urgency, hesitancy, suprapubic pressure SKIN: Denies rash, itching, or wounds. MUSCULOSKELETAL: Denies back pain, joint pain, or myalgia. NEUROLOGIC: Denies headache, numbness, tingling, or weakness. PSYCH: Denies depression or anxiety. [facility] Past Medical History Medical History Anxiety Ganglion, left wrist Generalized headaches HSV-2 (herpes simplex virus 2) infection Menorrhagia with regular cycle Pyelonephritis Surgical History Surgical History H/O colposcopy with cervical biopsy normal per pt Family History Family History Grandparent Breast cancer Carcinoma of colon Social History Social History Smoking status: Former smoker Tobacco type: e-cigarettes/vaping Smoking end date: 06/19/22 Alcohol intake: never Substance use: never Substance use type: does not use Do You Feel Safe in your Home?: Yes Lack of Transportation: No Lack of Food: Never True Current Housing: I Have Housing Concerned About Future Housing: No Difficulty Paying Gas/Electric Bills: No Difficulty Paying for Meds: No Currently Unemployed: No Education: Associate Degree Difficulty w/ Childcare or Family Care: No Living arrangements: with family 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 Please see nursing chart for further information. There is no relevant family history pertinent to the presenting complaint Exam Narrative: GENERAL: Well-appearing, well-nourished, and in no acute distress. HEAD: Normocephalic, atraumatic. EYES: EOMI. No redness or drainage. Conjunctivae normal. ENT: Mucous membranes pink and moist. NECK: Normal AROM. CHEST: No respiratory distress. Clear to auscultation. HEART: Regular rate and rhythm. No murmur appreciated. ABDOMEN: Soft, nondistended, normal active bowel sounds. Suprapubic tenderness.-CVAT EXTREMITIES: Normal range of motion. No edema. SKIN: Warm, dry, no rash. Capillary refill normal. Normal skin turgor. NEURO: No focal deficits. Alert and oriented x3. Gait steady. PSYCH: Normal affect. No signs of depression or anxiety. Course Course Level of Care: Express Care Visit Vital Signs Vital signs: Vital Signs Temperature 98.4 F 10/22/23 09:20 Pulse Rate 69 10/22/23 09:2
== END 2023-10-22 09:45 | disposition home or self-care (01) ==
PROVIDERS: Emergency Provider Nurse Practitioner; PCP Family Medicine
DX: N30.01 Acute cystitis with hematuria (principal); Z87.891 Personal history of nicotine dependence; F41.9 Anxiety disorder, unspecified
CPT/HCPCS: 81003; 87086; 87088; 99213; G0463

== ENCOUNTER 2024-02-23 15:50 | Outpatient (CLI) | payer OTHER, SELFPAY ==
[2024-02-23 16:07] LABS: Hematocrit 36.8 % (37.0-47.0); Hemoglobin 12.3 g/dL (12.0-15.0); Mean Corpuscular HGB Conc 33.4 g/dl (32-36); Mean Corpuscular Hemoglobin 30.4 pg (26-34); Mean Corpuscular Volume 91.1 fl (80-100); Mean Platelet Volume 11.5 fl (7.4-10.4); Platelet Count Result 272 k/mm3 (150-375); Red Blood Count 4.04 M/mm3 (4.2-5.4); Red Cell Distribution Width 12.9 % (11.5-14.5); White Blood Count 8.3 K/mm3 (4.5-10.0)
[2024-02-23 16:19] LABS: Alanine Aminotransferase 22 U/L (6-35); Albumin Level 4.6 g/dL (3.5-5.1); Alkaline Phosphatase 71 U/L (38-126); Anion Gap 13 mmol/L (4-12); Aspartate Amino Transferase 25 U/L (14-36); Bilirubin,Total 0.3 mg/dL (0.2-1.3); Blood Urea Nitrogen 15 mg/dL (7-17); CRP < 0.5 mg/dL (<1.0); Calcium 9.6 mg/dL (8.4-10.2); Carbon Dioxide 24 mmol/L (22-30); Chloride 106 mmol/L (98-107); Estimated Glomerular Filt Rate > 60; Glucose 93 mg/dL (65-110); Potassium 3.5 mmol/L (3.4-5.0); Sodium 143 mmol/L (137-145)
[2024-02-23 16:53] LABS: Erythrocyte Sedimentation Rate 25 mm/hr (0-20)
[2024-02-26 14:29] LABS: Immunoglobulin A 225 mg/dL (47-310); TTG IGA AB <1.0 U/mL
== END 2024-02-23 15:51 | disposition home or self-care (01) ==
LOC: ANHLAB 15:53
PROVIDERS: PCP Nurse Practitioner Family; Visit Provider Nurse Practitioner Family
DX: R10.9 Unspecified abdominal pain (principal); R19.7 Diarrhea, unspecified
CPT/HCPCS: 36415; 80053; 82784; 84443; 85027; 85652; 86140; 86364

== ENCOUNTER 2024-02-25 17:25 | Outpatient (CLI) | payer OTHER, SELFPAY ==
[2024-03-01 10:41] LABS: Trichrome Ova and Parasites STATUS: FINAL
== END 2024-02-25 17:26 | disposition home or self-care (01) ==
LOC: ANHLAB 17:27
PROVIDERS: PCP Nurse Practitioner Family; Visit Provider Nurse Practitioner Family
DX: R10.9 Unspecified abdominal pain (principal); R19.7 Diarrhea, unspecified
CPT/HCPCS: 82653; 82705; 83993; 87045; 87177; 87209; 87269; 87427; 87449; 87493

== ENCOUNTER 2024-02-28 08:37 | Outpatient (CLI) | payer OTHER, SELFPAY ==
[2024-03-02 14:34] LABS: Trichrome Ova and Parasites STATUS: FINAL
[2024-03-06 19:23] LABS: Calprotectin, Stool 16 mcg/g
== END 2024-02-28 08:38 | disposition home or self-care (01) ==
LOC: ANHLAB 08:38
PROVIDERS: PCP Nurse Practitioner Family; Visit Provider Nurse Practitioner Family
DX: R19.7 Diarrhea, unspecified (principal); R10.9 Unspecified abdominal pain; R19.4 Change in bowel habit
CPT/HCPCS: 82653; 83993; 87177; 87209

== ENCOUNTER 2024-03-16 00:07 | Day surgery (SDC) | payer OTHER, SELFPAY ==
[2024-03-02 15:44] VITALS: BMI 24.2
[2024-03-16 10:06] VITALS: BP 102/68; PULSE 92; RESP 16; TEMP 35.9; O2SAT 98; BMI 23.0
[2024-03-16] MEDS: LACTATED RINGERS 1,000 ML 150 ML IV CONT (10:31)
--- NOTE | 2024-03-16 11:14 | P.PNAN_ITS ---
Anes - Initial Pre Proc Eval Procedure: Operation Date: 03/16/24 11:00 Proposed Procedures p Colonoscopy - Dayo Leger MD Date/Time: 03/16/24 11:14 Surgeon: Dayo Leger MD Pre Op Diagnosis: Diarrhea/ abd pain Patient Data Age: 28 Gender: F Height: 1.63 m Weight: 60.8 kg Last Vital Signs Temp 96.7 F L 03/16/24 10:06 Pulse 92 03/16/24 10:06 Resp 16 03/16/24 10:06 BP 102/68 03/16/24 10:06 Pulse Ox 98 03/16/24 10:06 O2 Del Method Room Air 03/16/24 10:06 Allergies Allergy/AdvReac Type Severity Reaction Status Date / Time latex Allergy Intermediate Rash Verified 03/16/24 10:10 Home Medications Medication Instructions Recorded Confirmed Type sertraline 50 mg tablet See Rx Instructions .Route 08/11/23 03/16/24 Rx .COMPLEX #90 tabs dicyclomine 10 mg capsule 10 mg PO TID PRN abdominal pain 12/31/23 03/16/24 Rx #60 caps norethindrone 1 mg-ethinyl 1 tablet PO DAILY #84 tabs 02/25/24 03/16/24 Rx estradiol 20 mcg (21)-iron 75 mg (7) tablet (05/10 ()) cholestyramine (with sugar) 4 gram 4 g PO BID PRN Diarrhea 03/02/24 03/16/24 History powder for susp in a packet (Questran) Patient hx anesthesia problems: none Family hx anesthesia problems: none Results Review: All pre-operative results and documents have been reviewed as part of the pre-op erative evaluation. [facility] Past Medical History Medical History Anxiety Borborygmi Change in bowel habits Ganglion, left wrist Generalized headaches HSV-2 (herpes simplex virus 2) infection Menorrhagia with regular cycle Pyelonephritis Surgical History Surgical History H/O colposcopy with cervical biopsy normal per pt Family History Family History Grandparent Breast cancer Carcinoma of colon Social History Social History (Updated 02/25/24 @ 16:13 by Avinash Grigsby MA) Smoking status: Former smoker Tobacco type: e-cigarettes/vaping Smoking end date: 06/19/22 Alcohol intake: current Drinks per week: 4 Alcohol use details: rarely Substance use: never Substance use type: does not use Do You Feel Safe in your Home?: Yes Lack of Transportation: No Lack of Food: Never True Current Housing: I Have Housing Concerned About Future Housing: No Difficulty Paying Gas/Electric Bills: No Difficulty Paying for Meds: No Currently Unemployed: No Education: Associate Degree Difficulty w/ Childcare or Family Care: No Living arrangements: with family Occupation/Education: occupation 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 Gender identity (if verbalized by the patient): Female Sexual Orientation (if Verbalized by the Patient): Straight or Heterosexual Spiritual care concerns: No Anes - Eval Final PreProcedure Day of Procedure 03/16/24 11:14 Patient weight: normal Heart: regular rate and rhythm Lungs: clear to auscultation Airway: Mallampati scale class II Neurological: alert and oriented Last oral intake: >/= 8 hours ASA classification: II Emergent: no Anesthetic plan: proceed Anesthesia type and monitoring: general GIVS and standard monitoring Results Review: All pre-operative results and documents have been reviewed as part of the pre- operative evaluation. Informed Consent: The patient's anesthetic plan and its attendant risks and benefits were discussed with the patient/family/POA. Questions were solicited and answers provided to the satisfaction of the patient/family/POA.
--- NOTE | 2024-03-16 11:30 | PM.IMHP ---
H&P: HPI History of Present Illness Date/Time: 03/16/24 11:30 Chief Complaint: Diarrhea Narrative: this patient has been extensively evaluated for a chronic, recurrent picture of intermittent diarrhea. This is sometimes associated with cramps in the mid abdomen which occasionally resolve with defecation. She denies weight loss, rectal bleeding tenesmus, nausea or vomiting. Review of Systems Review of Systems: All systems reviewed & are unremarkable except as noted in HPI and below PMFSH Past Medical History Medical History Anxiety Borborygmi Change in bowel habits Ganglion, left wrist Generalized headaches HSV-2 (herpes simplex virus 2) infection Menorrhagia with regular cycle Pyelonephritis Surgical History Surgical History H/O colposcopy with cervical biopsy normal per pt Family History Family History Grandparent Breast cancer Carcinoma of colon Social History Social History (Updated 02/25/24 @ 16:13 by Avinash Grigsby MA) Smoking status: Former smoker Tobacco type: e-cigarettes/vaping Smoking end date: 06/19/22 Alcohol intake: current Drinks per week: 4 Alcohol use details: rarely Substance use: never Substance use type: does not use Do You Feel Safe in your Home?: Yes Lack of Transportation: No Lack of Food: Never True Current Housing: I Have Housing Concerned About Future Housing: No Difficulty Paying Gas/Electric Bills: No Difficulty Paying for Meds: No Currently Unemployed: No Education: Associate Degree Difficulty w/ Childcare or Family Care: No Living arrangements: with family Occupation/Education: occupation 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 Gender identity (if verbalized by the patient): Female Sexual Orientation (if Verbalized by the Patient): Straight or Heterosexual Spiritual care concerns: No Meds Home Medications and Allergies Home Medications Medication Instructions Recorded Confirmed Type sertraline 50 mg tablet See Rx Instructions .Route 08/11/23 03/16/24 Rx .COMPLEX #90 tabs dicyclomine 10 mg capsule 10 mg PO TID PRN abdominal pain 12/31/23 03/16/24 Rx #60 caps norethindrone 1 mg-ethinyl 1 tablet PO DAILY #84 tabs 02/25/24 03/16/24 Rx estradiol 20 mcg (21)-iron 75 mg (7) tablet ( FE 05/10 (28)) cholestyramine (with sugar) 4 gram 4 g PO BID PRN Diarrhea 03/02/24 03/16/24 History powder for susp in a packet (Questran) Allergies Allergy/AdvReac Type Severity Reaction Status Date / Time latex Allergy Intermediate Rash Verified 03/16/24 10:10 Vital Signs Vital Signs - 24 hr 03/16/24 10:06 Temperature 96.7 F L Pulse Rate 92 Respiratory Rate 16 Blood Pressure 102/68 Pulse Oximetry 98 Oxygen Delivery Room Air Exam Narrative: GENERAL: Well-appearing, well-nourished, and in no acute distress. HEAD: Normocephalic, atraumatic. EYES: EOMI. No redness or drainage. Conjunctivae normal. ENT: Mucous membranes pink and moist. NECK: Normal AROM. CHEST: No respiratory distress. Clear to auscultation. HEART: Regular rate and rhythm. No murmur appreciated. ABDOMEN: Soft, nondistended, normal active bowel sounds. Suprapubic tenderness.-CVAT EXTREMITIES: Normal range of motion. No edema. SKIN: Warm, dry, no rash. Capillary refill normal. Normal skin turgor. NEURO: No focal deficits. Alert and oriented x3. Gait steady. PSYCH: Normal affect. No signs of depression or anxiety. Assessment and Plan Assessment and plan (1) Diarrhea: Code(s): R19.7 - Diarrhea, unspecified Status: Acute Assessment and Plan: The patient is deemed a good candidate for the procedure. Consent signed. Will proceed. We will take biopsies of right and left colon to rule out microscopic colitis.
[2024-03-16 11:50] LABS: BEDSIDEPREGUCG Negative (Negative)
[2024-03-16 11:51] VITALS: BP 89/50; PULSE 61; RESP 20; O2SAT 100
[2024-03-16 12:01] VITALS: BP 95/51; PULSE 71; RESP 20; O2SAT 100
[2024-03-16 12:11] VITALS: BP 105/51; PULSE 65; RESP 18; O2SAT 100
== END 2024-03-16 12:18 | disposition home health service (06) ==
PROVIDERS: PCP Nurse Practitioner Family; Referring Provider Nurse Practitioner Family; Visit Provider Internal Medicine Gastroenterology
PROC: 0DJD8ZZ Inspection of Lower Intestinal Tract, Via Natural or Artificial Opening Endoscopic (ICD-10-PCS; CPT 45378; principal; 2024-03-16 11:00)
DX: R19.7 Diarrhea, unspecified (principal); F41.9 Anxiety disorder, unspecified; Z98.890 Other specified postprocedural states; Z87.891 Personal history of nicotine dependence; Z80.0 Family history of malignant neoplasm of digestive organs; Z80.3 Family history of malignant neoplasm of breast
CPT/HCPCS: 45380; 88305; J2003; J2704; J7120

== ENCOUNTER 2024-10-09 08:06 | Outpatient (CLI) | payer OTHER, SELFPAY ==
[2024-10-09 09:17] LABS: Basophils Absolute Auto 0.1 K/mm3 (0.0-0.1); Basophils Percent Auto 0.8 % (0.2-1.2); Eosinophils Absolute Auto 0.1 K/mm3 (0-0.3); Eosinophils Percent Auto 1.4 % (0-4.4); Hematocrit 37.8 % (37.0-47.0); Hemoglobin 12.3 g/dL (12.0-15.0); Immature Granulocyte Absolute 0.02 K/mm3 (0.00-0.031); Immature Granulocyte Percent A 0.3 % (0-0.5); Lymphocytes Absolute Auto 2.49 K/mm3 (0.9-3.2); Lymphocytes Percent Auto 39.9 % (18.3-44.2); Mean Corpuscular HGB Conc 32.5 g/dl (32-36); Mean Corpuscular Hemoglobin 29.8 pg (26-34); Mean Corpuscular Volume 91.5 fl (80-100); Mean Platelet Volume 11.2 fl (7.4-10.4); Monocytes Absolute Auto 0.4 K/mm3 (0.1-0.6); Monocytes Percent Auto 5.8 % (2.6-8.5); Neutrophils Absolute Auto 3.2 K/mm3 (1.3-6.7); Neutrophils Percent Auto 51.8 % (45.5-73.1); Platelet Count Result 267 k/mm3 (150-375); Red Blood Count 4.13 M/mm3 (4.2-5.4); Red Cell Distribution Width 12.3 % (11.5-14.5); White Blood Count 6.2 K/mm3 (4.5-10.0)
[2024-10-09 09:46] LABS: Alanine Aminotransferase 18 U/L (6-35); Albumin Level 4.3 g/dL (3.5-5.1); Alkaline Phosphatase 43 U/L (38-126); Anion Gap 10 mmol/L (4-12); Aspartate Amino Transferase 27 U/L (14-36); Bilirubin,Total 0.7 mg/dL (0.2-1.3); Blood Urea Nitrogen 12 mg/dL (7-17); Calcium 9.3 mg/dL (8.4-10.2); Carbon Dioxide 22 mmol/L (22-30); Chloride 105 mmol/L (98-107); Cholesterol 198 mg/dL (0-200); Estimated Glomerular Filt Rate > 60; Glucose 84 mg/dL (65-110); HDL Direct 62 mg/dL; Potassium 4.1 mmol/L (3.4-5.0); Sodium 137 mmol/L (137-145); Total Protein 7.7 g/dL (6.3-8.2); Triglycerides 90 mg/dL (<150)
[2024-10-09 09:57] LABS: LDL Cholesterol Direct 112 mg/dL
== END 2024-10-09 08:07 | disposition home or self-care (01) ==
LOC: ANHLAB 08:08
PROVIDERS: PCP Nurse Practitioner Family; Visit Provider Nurse Practitioner Family
DX: F41.9 Anxiety disorder, unspecified (principal); R19.7 Diarrhea, unspecified; R10.9 Unspecified abdominal pain; Z13.220 Encounter for screening for lipoid disorders
CPT/HCPCS: 36415; 80053; 80061; 84443; 85025

== ENCOUNTER 2024-11-21 19:21 | Emergency (ER) | payer OTHER, SELFPAY ==
--- NOTE | ~2024-11-21 | XR_ITS ---
EXAMINATION: XR chest 2V Exam Date/Time: 11/21/2024 21:24 CDT HISTORY: chest pain Comparison: 10/07/2019. RESULT: Lines, tubes, and devices: None. Lungs and pleura: Clear. Cardiomediastinal silhouette: Stable. Other: No acute osseous or upper abdominal finding. IMPRESSION: No acute cardiopulmonary process. Reviewed, dictated and finalized at location K.
[2024-11-21 19:23] VITALS: BP 125/80; PULSE 75; RESP 20; TEMP 36.4; O2SAT 100
--- NOTE | 2024-11-21 19:23 | ECG_ITS ---
Test Date: 2024-11-21 19:29:47 Measurements Intervals [place] Rate: 71 P: 69 MT: 140 QRS: 74 QRSD: 88 T: 57 QT: 375 QTc: 409 Interpretive Statements SINUS RHYTHM WITH SINUS ARRHYTHMIA NORMAL ECG No previous ECG available for comparison Electronically Signed On 11-21-2024 20:23:00 CDT by Jeremy Mcgowan D.O.
--- OUTSIDE RECORDS SUMMARY | 2024-11-21 19:23 | XMS_ITS | Encounter Summary ---
Author Organization [facility] Address [address] [place] [place] [address] Care Team Providers Care Nursery School Attendant Name Role Phone Brenna Barreto MD Primary Care Provider [phone] Gaurang Carrillo MD Primary Care Provider [phone]- [phone] Encounter Details Date Type Department Care Team (Late st Contact Info) Description 12/01/2019 Lab Requisition [facility] 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 Gender Identity Not on file Sexual Orientation Not on file documented as of this encounter Plan of Treatment Not on file documented as of this encounter Procedures Procedure Name Priority Date/Time Associated Diagnosis Comments DERMATOPATHOLOGY Routine 11/30/2019 12:0 0 AM CDT documented in this encounter Results * DERMATOPATHOLOGY (11/30/2019 12:00 AM CDT) Case Report Dermatopathology Report Case: [id number] Authorizing Provider: Ian Willson MD Collected: 11/30/2019 12:00 AM Ordering Location: [facility] Received: 12/01/2019 03:09 PM Pathologist: Jammie Grady MD Specimen: Skin, left abd wrist 0 3:38 PM CDT DERMATOPATHOLOGY LABORATORY Final Diagnosis Specimen A. SKIN, left abd wrist: COMPOUND MELANOCYTIC NEVUS (D22.5) 0 3:38 PM CDT DERMATOPATHOLOGY LABORATORY at 1538 CDT Clinical History R/O Dys nevus 0 3:38 PM CDT DERMATOPATHOLOGY LABORATORY Gross Description Specimen A: Received is one formalin filled container labeled with the patient's name and designated left abd wrist. The specimen consists of a shave biopsy measuring 4x4x3 mm, bisected. Jar 0. 0 3:38 PM CDT DERMATOPATHOLOGY LABORATORY Microscopic Description Specimen A. SKIN, left abd wrist: There are nests of melanocytes at the dermal-epidermal junction and within the dermis. 0 3:38 PM CDT DERMATOPATHOLOGY LABORATORY Disclaimer An external and internal positive and negative controls are appropriate for the histochemical, immunohistochemical and immunofluorescence stain(s) in this case (if any), except where stated explicitly. The performance characteristics of the stain(s) cited in this report were developed and its performance characteristic determined by the Dermatopathology Laboratory at [facility], directed by Dr. Aaliyah Beltran. These tests need not be, and therefore are not, approved by the [place] Food and Drug Administration. The tests are used for clinical purposes. Billing Codes Specimen Charges Stain Charges 52790 1 0 3:38 PM CDT DERMATOPATHOLOGY LABORATORY Embedded Images 0 3:38 PM CDT DERMATOPATHOLOGY LABORATORY Pathology/Cytolog y TISSUE SPECIMEN FROM SKIN / Unknown 11/30/2019 12/01/2019 3:09 PM CDT Ian Willson MD LAB - PATHOLOGY/CYTOLOGY ORD ERABLES Final Result DERMATOPATHOLOGY LABORATORY [facility] - Department of Dermatology [employer] [place]/[address] [phone] documented in this encounter Visit Diagnoses Not on filedocumented in this encounter Care Teams Nursery School Attendant Relationship Specialty Start Date End Date Brenna Barreto MD [address] [address] PCP - General 06/17/19 02/29/24 Gaurang Carrillo MD [address] [place] [id number] PCP - General Family Medicine 03/01/24 documented as of this encounter
--- OUTSIDE RECORDS SUMMARY | 2024-11-21 19:23 | XMS_ITS | Clinical Summary ---
Author Organization [facility] Address [address] [place] [address] Care Team Providers Care Shuttlecock Feather Trimmer Name Role Phone Gaurang Carrillo MD Primary Care Provider [phone]- [phone] Source Comments [facility],non-owned Affiliates and Associated Physician Practices is amultiple site organization consisting of ambulatory clinics and hospital sitesin [place], [place], [place] and [place]. This disclosure is being madepursuant to the Care Everywhere program and may not contain all information available regarding this patient. Last updated 18.[facility] Allergies Active Allergy Reactions Criticality Noted Date Comments Latex Rash Medium 07/29/2017 Medications * Be aware that medications may not be up to date on this document. Alwaysverify current medications with the patient. 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 Gender Identity Not on file Sexual Orientation Not on file Last Filed Vital Signs Vital Sign Reading Time Taken Comments Blood Pressure - - Pulse - - Temperature - - Respiratory Rate - - Oxygen Saturation - - Inhaled Oxygen Concentration - - Weight 63.5 kg (140 lb) 03/01/2024 3:13 PM REAL ESTATE MARKETING COORDINATOR Height 162.6 cm (5' 4) 03/01/2024 3:13 PM REAL ESTATE MARKETING COORDINATOR Body Mass Index 24.03 03/01/2024 3:13 PM REAL ESTATE MARKETING COORDINATOR Plan of Treatment Health Maintenance Due Date Last Done Comments HIV SCREENING 2010 HEPATITIS C SCREENING 04/14/2013 DTAP/TDAP/TD VACCINES (1 - Tdap) 2014 HEPATITIS B VACCINE (1 of 3 - 19+ 3-dose series) 2014 PAP SMEAR 2016 HPV VACCINE (1 - 3-dose SCDM series) 2022 COVID-19 VACCINE (1 - 2023-2 5 season) 2023 DEPRESSION SCREENING 04/21/2024 INFLUENZA VACCINE (#1) 2024 ZOSTER VACCINE (1 of 2) 2045 HIB VACCINE Aged Out No longer eligi ble based on patient's age to complete this topic MENINGOCOCCAL (Group B) VACC INE SHARED DECISION-MAKING Aged Out No longer eligibl e based on patient's age to complete this topic MENINGOCOCCAL GROUPS A/C/Y/W VACCINE Aged Out No longer eligible b ased on patient's age to complete this topic PNEUMOCOCCAL VACCINE Aged Out No long er eligible based on patient's age to complete this topic Insurance [id number] [place] [address] [facility] Address: [facility] [id number] [place] [address] SELF PAY NO INSURANCE Member Subscriber Plan / Payer (Ef fective for All Dates) Name:Adrianna Webster Member ID:Not on file Relation to Subscriber:Not on file Name:ADRIANNA WEBSTER Subscriber ID:Not on file (Home) Address: [address] [place] [id number] Payer ID:Not on file Group ID:Not on file Type:Self Pay Address: [place], [place] SELF PAY NO INSURANCE Member Subscriber Plan / Payer (Ef fective for All Dates) Name:Adrianna Webster Member ID:Not on file Relation to Subscriber:Self Name:Adrianna Webster Subscriber ID:Not on file Payer ID:Not on file Group ID:Not on file Type:Self Pay Address: [facility] SELF PAY NO INSURANCE Member Subscriber Plan / Payer (Ef fective for All Dates) Name:Adrianna Webster Member ID:Not on file Relation to Subscriber:Self Name:Adrianna Webster Subscriber ID:Not on file Payer ID:Not on file Group ID:Not on file Type:Self Pay Address: [facility]ARE SELF PAY NO INSURANCE Member Subscriber Plan / Payer (Ef fective for All Dates) Name:Adrianna Webster Member ID:Not on file Relation to Subscriber:Self Name:Adrianna Webster Subscriber ID:Not on file Payer ID:Not on file Group ID:Not on file Type:Self Pay Address: [facility] CARE Care Teams Shuttlecock Feather Trimmer Relationship Specialty Start Date End Date Gaurang Carrillo MD [address] [place] [phone] PCP - General Family Medicine 03/01/24
--- OUTSIDE RECORDS SUMMARY | 2024-11-21 19:23 | XMS_ITS ---
Author Organization [facility] Address [address] [address] Care Team Providers Care Wealth Management Consultant Name Role Phone Migration, Provider Unavailable Unavailable REASON FOR VISIT EMR-Avi Encounters Encounter Location Date Provider Diagnosis [facility] [address] [place], [place] [phone] 07/17/2024 Prov ider Migration Plan Of Treatment No Information Progress Notes * DANNIELLE WEBSTER MDOB:1995 (29 yo F)Acc No.[id number]:07/17/2024 Patient: DANNIELLE MATIAS :1995 A ge:29 Y S ex:Female Address:[address] [place], [address] Subjective: * Chief Complaints: * E MR-Avi * * Date:
--- OUTSIDE RECORDS SUMMARY | 2024-11-21 19:23 | XMS_ITS ---
Author Organization [facility] Address [address] [address] Care Team Providers Care Pharmacy Technician Program Director Name Role Phone Migration, Provider Unavailable Unavailable REASON FOR VISIT EMR-Avi Encounters Encounter Location Date Provider Diagnosis [facility] [address] [place], [place] [id number] 07/18/2024 Prov ider Migration Plan Of Treatment No Information Progress Notes * DANNIELLE WEBSTER MDOB:1995 (29 yo F)Acc No.[id number]:07/18/2024 Patient: DANNIELLE MATIAS :1995 A ge:29 Y S ex:Female Address:[address] [place], [address] Subjective: * Chief Complaints: * E MR-Avi * * Date:
--- OUTSIDE RECORDS SUMMARY | 2024-11-21 19:23 | XMS_ITS | Encounter Summary ---
Author Organization [facility] Address [address] [address] Care Team Providers Care Interpreter For The Deaf Name Role Phone Brenna Barreto MD Primary Care Provider +1- [phone] Gaurang Carrillo MD Primary Care Provider +1- [phone] Encounter Details Date Type Department Care Team (Late st Contact Info) Description 06/17/2019 Lab Requisition [facility] DermPath Lab [address] [facility] [place] [address] Ian Willson MD [address] [place] [address] Social History Tobacco Use Types Packs/Day Years Used Date Smoking Tobacco: Never Smokeless Tobacco: Never Comments Unknown Sex and Gender Information Value Date Recorded Sex Assigned at Not on file 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 Gender Identity Not on file Sexual Orientation Not on file documented as of this encounter Plan of Treatment Not on file documented as of this encounter Procedures Procedure Name Priority Date/Time Associated Diagnosis Comments DERMATOPATHOLOGY Routine 06/16/2019 12:0 0 AM PROFESSOR OF FAMILY MEDICINE documented in this encounter Results * DERMATOPATHOLOGY (06/16/2019 12:00 AM PROFESSOR OF FAMILY MEDICINE) Case Report Dermatopathology Report Case: [id number] Authorizing Provider: Ian Willson MD Collected: 06/16/2019 12:00 AM Ordering Location: [facility] DermPath Lab Received: 06/17/2019 01:49 PM Pathologist: Candie Beltran MD Specimen: Skin, right lower lip 0 12:27 PM [facility] Final Diagnosis Specimen A. 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 0 12:27 PM [facility] Gross Description Specimen A: Received is one formalin filled container labeled with the patient's name and designated right lower lip. The specimen consists of a punch excision measuring [id number], bisected. Jar 0. 0 12:27 PM [facility] Microscopic Description Specimen A. SKIN, right lower lip: There is a collection of mucin associated with a mixed infiltrate of inflammatory cells. Neutrophils, histiocytes, and multinucleated giant cells are present within the dermis. Salivary glands are present. Additional deeper sections were obtained and reviewed. COMMENT: The histologic findings are consistent with a mucocele (mucous cyst of the oral mucosa) that has ruptured. 0 12:27 PM [facility] Disclaimer An external and internal positive and negative controls are appropriate for the histochemical, immunohistochemical and immunofluorescence stain(s) in this case (if any), except where stated explicitly. The performance characteristics of the stain(s) cited in this report were developed and its performance characteristic determined by the Dermatopathology Laboratory at [facility], directed by Dr. Aaliyah Beltran. These tests need not be, and therefore are not, approved by the [place] Food and Drug Administration. The tests are used for clinical purposes. Billing Codes Specimen Charges Stain Charges 70128 1 0 12:27 PM [facility] Embedded Images 0 12:27 PM [facility] Pathology/Cytolog y TISSUE SPECIMEN FROM SKIN / Unknown 06/16/2019 06/17/2019 1:49 PM [facility] Ian Willson MD LAB - PATHOLOGY/CYTOLOGY ORD ERABLES Final Result DERMATOPATHOLOGY LABORATORY [facility] - Department of Dermatology [address] [facility], 5th [place] [address], [facility] [phone] documented in this encounter Visit Diagnoses Not on filedocumented in this encounter Care Teams Interpreter For The Deaf Relationship Specialty Start Date End Date Brenna Barreto MD [address] [id number] PCP - General 06/17/19 02/29/24 Gaurang Carrillo MD [address] [place] [address] PCP - General Family Medicine 03/01/24 documented as of this encounter
--- OUTSIDE RECORDS SUMMARY | 2024-11-21 19:23 | XMS_ITS | Patient Health Record ---
Author Organization [facility] Address [address] [address] Care Team Providers Care Wallet Assembler Name Role Phone Migration, Provider Unavailable Unavailable Reason For Referral No Information Encounters Encounter Location Date Provider Diagnosis [facility] [address] [place], [place] [id number] 07/17/2024 Prov ider Migration [facility] [address] [place], [place] [id number] 07/18/2024 Prov ider Migration Plan Of Treatment No Information
--- OUTSIDE RECORDS SUMMARY | 2024-11-21 21:20 | XMS_ITS | Clinical Summary ---
Author Organization [facility] Address [address] [place] [address] Care Team Providers Care Technician Biological Health Name Role Phone Gaurang Carrillo MD Primary Care Provider +1- [phone] Source Comments [facility],non-owned Affiliates and Associated Physician Practices is amultiple site organization consisting of ambulatory clinics and hospital sitesin [place], [place], [place] and [place]. This disclosure is being madepursuant to the Care Everywhere program and may not contain all information available regarding this patient. 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 Gender Identity Not on file Sexual Orientation Not on file Last Filed Vital Signs Vital Sign Reading Time Taken Comments Blood Pressure - - Pulse - - Temperature - - Respiratory Rate - - Oxygen Saturation - - Inhaled Oxygen Concentration - - Weight 63.5 kg (140 lb) 03/01/2024 3:13 PM SALON LEADER Height 162.6 cm (5' 4) 03/01/2024 3:13 PM SALON LEADER Body Mass Index 24.03 03/01/2024 3:13 PM SALON LEADER Plan of Treatment Health Maintenance Due Date [...] patient's age to complete this topic Insurance [id number] [place] [address] [facility] Address: [facility] [id number] [place] [address] SELF PAY NO INSURANCE Member Subscriber Plan / Payer (Ef fective for All Dates) Name:Adrianna Webster Member ID:Not on file Relation to Subscriber:Not on file Name:ADRIANNA WEBSTER Subscriber ID:Not on file (Home) Address: [address] [place] [id number] Payer ID:Not on file Group ID:Not on file Type:Self Pay Address: [place], [place] SELF PAY NO INSURANCE Member Subscriber Plan / Payer (Ef fective for All Dates) Name:Adrianna Webster Member ID:Not on file Relation to Subscriber:Self Name:Adrianna Webster Subscriber ID:Not on file Payer ID:Not on file Group ID:Not on file Type:Self Pay Address: [facility] SELF PAY NO INSURANCE Member Subscriber Plan / Payer (Ef fective for All Dates) Name:Adrianna Webster Member ID:Not on file Relation to Subscriber:Self Name:Adrianna Webster Subscriber ID:Not on file Payer ID:Not on file Group ID:Not on file Type:Self Pay Address: [facility] SELF PAY NO INSURANCE Member Subscriber Plan / Payer (Ef fective for All Dates) Name:Adrianna Webster Member ID:Not on file Relation to Subscriber:Self Name:Adrianna Webster Subscriber ID:Not on file Payer ID:Not on file Group ID:Not on file Type:Self Pay Address: [facility] CARE Care Teams Technician Biological Health Relationship Specialty Start Date End Date Gaurang Carrillo MD [address] [place] [phone] PCP - General Family Medicine 03/01/24
--- OUTSIDE RECORDS SUMMARY | 2024-11-21 21:20 | XMS_ITS | Encounter Summary ---
Author Organization [facility] Address [address] [facility] [place] [address] Care Team Providers Care Chemistry Teacher Name Role Phone Brenna Barreto MD Primary Care Provider [phone]- [phone] Gaurang Carrillo MD Primary Care Provider +1- [phone] Encounter Details Date Type Department Care Team (Late st Contact Info) Description 06/17/2019 Lab Requisition [facility] D[facility] Lab [address] 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 Gender Identity Not on file Sexual Orientation Not on file documented as of this encounter Plan of Treatment Not on file documented as of this encounter Procedures Procedure Name Priority Date/Time Associated Diagnosis Comments DERMATOPATHOLOGY Routine 06/16/2019 12:0 0 AM WASHTUB WORKER documented in this encounter Results * DERMATOPATHOLOGY (06/16/2019 12:00 AM WASHTUB WORKER) Case Report Dermatopathology Report Case: [id number] Authorizing Provider: Ian Willson MD Collected: 06/16/2019 12:00 AM Ordering Location: [facility] Received: 06/17/2019 01:49 PM Pathologist: Candie Beltran MD Specimen: Skin, right lower lip 0 12:27 PM [facility] DERMAT[facility]ATH[facility]Y [facility]ORATORY Final Diagnosis Specimen A. 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 0 12:27 PM [facility] DERMATOPATHOLOGY LABORATORY Gross Description Specimen A: Received is one formalin filled container labeled with the patient's name and designated right lower lip. The specimen consists of a punch excision measuring [id number], bisected. Jar 0. 0 12:27 PM [facility] DERMATOPATHOLOGY LABORATORY Microscopic Description Specimen A. SKIN, [...] mucosa) that has ruptured. 0 12:27 PM [facility] DERMATOPATHOLOGY LABORATORY Disclaimer An external and internal positive and negative controls are appropriate for the histochemical, immunohistochemical and immunofluorescence stain(s) in this case (if any), except where stated explicitly. The performance characteristics of the stain(s) cited in this report were developed and its performance characteristic determined by the Dermatopathology Laboratory at [facility], directed by Dr. Aaliyah Beltran. These tests need not be, and therefore are not, approved by the [place] Food and Drug Administration. The tests are used for clinical purposes. Billing Codes Specimen Charges Stain Charges 68018 1 0 12:27 PM [facility] DERMATOPATHOLOGY LABORATORY Embedded Images 0 12:27 PM [facility] DERMATOPATHOLOGY LABORATORY Pathology/Cytolog y TISSUE SPECIMEN FROM SKIN / Unknown 06/16/2019 06/17/2019 1:49 PM [facility] Ian Willson MD LAB - PATHOLOGY/CYTOLOGY ORD ERABLES Final Result DERMATOPATHOLOGY LABORATORY [facility] - Department of Dermatology [address] [facility] 5th [place] [address], [facility] [phone] documented in this encounter Visit Diagnoses Not on filedocumented in this encounter Care Teams Chemistry Teacher Relationship Specialty Start Date End Date Brenna Barreto MD [address] [phone] PCP - General 06/17/19 02/29/24 Gaurang Carrillo MD [address] [place] [address] PCP - General Family Medicine 03/01/24 documented as of this encounter
--- OUTSIDE RECORDS SUMMARY | 2024-11-21 21:20 | XMS_ITS | Encounter Summary ---
Author Organization [facility] Address [address] [facility] [place] [address] Care Team Providers Care Beam Builder Name Role Phone Brenna Barreto MD Primary Care Provider +1- [phone] Gaurang Carrillo MD Primary Care Provider +1- [phone] Encounter Details Date Type Department Care Team (Late st Contact Info) Description 12/01/2019 Lab Requisition [facility] Lab [address] 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 Received: 12/01/2019 03:09 PM Pathologist: [...] characteristic determined by the Dermatopathology Laboratory at [facility], directed by Dr. Aaliyah Beltran. These tests need not be, and therefore are not, approved by the [place] Food and Drug Administration. The tests are used for clinical purposes. Billing Codes Specimen Charges Stain Charges 38637 1 0 3:38 PM CDT DERMATOPATHOLOGY LABORATORY Embedded Images 0 3:38 PM CDT DERMATOPATHOLOGY LABORATORY Pathology/Cytolog y TISSUE SPECIMEN FROM SKIN / Unknown 11/30/2019 12/01/2019 3:09 PM CDT Ian Willson MD LAB - PATHOLOGY/CYTOLOGY ORD ERABLES Final Result DERMATOPATHOLOGY LABORATORY [facility] - Department of Dermatology Humidifier Maintenance Worker [place]/[address] [phone] documented in this encounter Visit Diagnoses Not on filedocumented in this encounter Care Teams Beam Builder Relationship Specialty Start Date End Date Brenna Barreto MD [address] [address] PCP - General 06/17/19 02/29/24 Gaurang Carrillo MD [address] [place] [phone] PCP - General Family Medicine 03/01/24 documented as of this encounter
[2024-11-21 22:06] VITALS: O2SAT 99
[2024-11-21 22:09] LABS: Hematocrit 36.1 % (37.0-47.0); Hemoglobin 11.9 g/dL (12.0-15.0); Immature Granulocyte Percent A 0.2 % (0-0.5); Lymphocytes Absolute Auto 3.87 K/mm3 (0.9-3.2); Mean Corpuscular HGB Conc 33.0 g/dl (32-36); Mean Corpuscular Hemoglobin 30.1 pg (26-34); Mean Corpuscular Volume 91.2 fl (80-100); Nucleated Red Blood Cells Absolute Auto 0.000 K/mm3 (0.0-0.012); Nucleated Red Blood Cells Perc 0.0 % (0.0-0.2); Platelet Count Result 244 k/mm3 (150-375); Red Blood Count 3.96 M/mm3 (4.2-5.4); White Blood Count 8.5 K/mm3 (4.5-10.0)
[2024-11-21 22:28] LABS: INR 1.1; Prothrombin Time 14.1 Seconds (11.1-14.7)
[2024-11-21 22:29] LABS: Partial Thromboplastin Time 24.6 Seconds (22.3-36.8)
--- NOTE | 2024-11-21 22:29 | ED.CHESTPAIN ---
HPI - Chest Pain General Chief Complaint: Chest Pain Stated Complaint: Chest pressure x 4 hours Time Seen by Provider: 11/21/24 21:04 History of Present Illness HPI narrative: Patient is a 29-year-old female who presents to the ER with complaints of chest pressure that started around 3:00 p.m. this afternoon. She reports she has never had this sensation before. Patient reports the pain is constant, but it worsens at times. She denies any shortness of breath, wheezing, coughing, or recent fevers. Patient endorses a history of anxiety, IBS, and takes control every day. Related Data Home Medications ?Medication ?Instructions ?Recorded ?Confirmed ?Last Taken ?Type norethindrone 1 mg-ethinyl 1 tablet PO DAILY 07/05/24 07/05/24 Unknown History estradiol 20 mcg (24)-iron 75 mg (4) tablet () Allergies Allergy/AdvReac Type Severity Reaction Status Date / Time latex Allergy Intermediate Rash Verified 11/21/24 19:26 Review of Systems Review of Systems: All systems reviewed & are unremarkable except as noted in HPI and below PMFSH Past Medical History Medical History Borborygmi Change in bowel habits Generalized headaches HSV-2 (herpes simplex virus 2) infection Pyelonephritis Menorrhagia with regular cycle Ganglion, left wrist Anxiety Surgical History Surgical History H/O colposcopy with cervical biopsy normal per pt Family History Family History Grandparent Breast cancer Carcinoma of colon Social History Social History Smoking status: Former smoker Tobacco type: e-cigarettes/vaping Smoking end date: 06/19/22 Alcohol intake: current Drinks per week: 4 Alcohol use details: rarely Substance use: never Substance use type: does not use Do You Feel Safe in your Home?: Yes Lack of Transportation: No Lack of Food: Never True Current Housing: I Have Housing Concerned About Future Housing: No Difficulty Paying Gas/Electric Bills: No Difficulty Paying for Meds: No Currently Unemployed: No Education: Associate Degree Difficulty w/ Childcare or Family Care: No Living arrangements: with family Occupation/Education: occupation 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 HEAD: Normocephalic, atraumatic. NECK: Supple. No adenopathy, no masses. RESPIRATORY: Airway patent, respirations nonlabored. Clear to auscultation bilaterally, no rales, rhonchi, wheezing. CARDIOVASCULAR: Regular rate and rhythm without murmurs, rubs, or gallops. Peripheral pulses 2+ and equal bilaterally. ABDOMINAL: Soft, nontender, nondistended, no hepatosplenomegaly. Normoactive BS. MUSCULOSKELETAL: Moves all extremities. Strength/ROM intact without gross deformities. SKIN: Warm, dry, normal color. No rashes. NEURO: A&O X3. Speech clear. Cranial nerves II-XII intact. No ataxic movements. PSYCHIATRIC: Appropriate mood and affect. Normal interaction. Course Vital Signs Vital signs: Vital Signs Temperature 36.4 C L 11/21/24 19:23 Pulse Rate 75 11/21/24 19:23 Respiratory Rate 20 11/21/24 19:23 Blood Pressure 125/80 11/21/24 19:23 Pulse Oximetry 100 11/21/24 19:23 Oxygen Delivery Room Air 11/21/24 19:23 Temperature 36.4 C L 11/21/24 19:23 Pulse Rate 75 11/21/24 19:23 Respiratory Rate 20 11/21/24 19:23 Blood Pressure 125/80 11/21/24 19:23 Pulse Oximetry 99 11/21/24 22:06 Oxygen Delivery Room Air 11/21/24 22:06 MDM - Chest Pain MDM Narrative Medical decision making narrative: Patient is a 29-year-old female who presents to the ER with complaints of chest pressure that started around 3:00 p.m. this afternoon. She reports she has never had this sensation before. Patient reports the pain is constant, but it worsens at times. She denies any shortness of breath, wheezing, coughing, or recent fevers. Patient endorses a history of anxiety, IBS, and takes control every day. Labs Ordered: CBC, CMP, TSH, troponin, lipase, D-dimer, PTT, INR Imaging Ordered: Chest x-ray Medications Ordered: None necessary, patient refused pain medication Results: Patient's CBC and CMP were unremarkable. Her coags were within normal limits. Patient's D-dimer was 0.28. Her TSH was 1.64. Patient's lipase was 82. Her chest x-ray indicates no acute cardiopulmonary processes. Diagnosis: Atypical chest pain, costochondritis Risks: HEART score: low risk HEART Score for Major Cardiac Events from [facility] on 11/21/2024 All calculations should be rechecked by clinician prior to use RESULT SUMMARY: 0 points Low Score (0-3 points) Risk of MACE of 0.9-1.7%. INPUTS: History ?> 0 = Slightly suspicious EKG ?> 0 = Normal Age ?> 0 = <45 Risk factors ?> 0 = No known risk factors Initial troponin ?> 0 = <Normal limit Patient Education/Shared MDM: Results of lab work and imaging shared with patient. She verbalizes understanding and continues to deny pain medication administration. Patient strongly advised to maintain hydration status upon discharge and follow-up with her PCP as soon as possible. She will be discharged home with a prescription for muscle relaxants. Patient was also advised to take Tylenol and ibuprofen for pain control. Strict return precautions provided. Patient verbalized understanding and is in agreement with plan. Vital signs stable at time of discharge. All questions answered. Differential Diagnosis Differential diagnosis: Likely atypical chest pain, costochondritis, chest pain and other (Hypothyroidism) Lab Data Attestation: I reviewed the patient's lab results. 11/21/24 22:02 11/21/24 22:02 Labs: Lab Results 11/21/24 11/21/24 Range/Units 22:02 23:52 WBC 8.5 (4.5-10.0) K/mm3 RBC 3.96 L (4.2-5.4) M/mm3 Hgb 11.9 L (12.0-15.0) g/dL Hct 36.1 L (37.0-47.0) % MCV 91.2 (80-100) fl MCH 30.1 (26-34) pg MCHC 33.0 (32-36) g/dl RDW 11.7 (11.5-14.5) % Plt Count 244 (150-375) k/mm3 MPV 10.8 H (7.4-10.4) fl Immature Gran % (Auto) 0.2 (0-0.5) % Neut % (Auto) 46.5 (45.5-73.1) % Lymph % (Auto) 45.4 H (18.3-44.2) % Pickett % (Auto) 6.3 (2.6-8.5) % Eos % (Auto) 0.9 (0-4.4) % Baso % (Auto) 0.7 (0.2-1.2) % Lymph # (Auto) 3.87 H (0.9-3.2) K/mm3 Pickett # (Auto) 0.5 (0.1-0.6) K/mm3 Eos # (Auto) 0.1 (0-0.3) K/mm3 Baso # (Auto) 0.1 (0.0-0.1) K/mm3 Abs Immat Gran (auto) 0.02 (0.00-0.031) K/mm3 Absolute Neuts (auto) 4.0 (1.3-6.7) K/mm3 Absolute Nucleated RBC 0.000 (0.0-0.012) K/mm3 Nucleated RBC % 0.0 (0.0-0.2) % PT 14.1 (11.1-14.7) Seconds INR 1.1 APTT 24.6 (22.3-36.8) Seconds D-Dimer 0.28 (<0.48) ug/mL Sodium 137 (137-145) mmol/L Potassium 3.6 (3.4-5.0) mmol/L Chloride 108 H (98-107) mmol/L Carbon Dioxide 22 (22-30) mmol/L Anion Gap 7 (4-12) mmol/L BUN 16 (7-17) mg/dL Creatinine 0.76 (0.7-1.0) mg/dL Estim Creat Clear Calc 82 ml/min Estimated GFR > 60 (59 - ) Glucose 106 (65-110) mg/dL Calcium 9.5 (8.4-10.2) mg/dL Total Bilirubin 0.4 (0.2-1.3) mg/dL AST 25 (14-36) U/L ALT 21 (6-35) U/L Alkaline Phosphatase 54 (38-126) U/L Troponin I < 0.012 Pending (0.000-0.034) ng/mL Total Protein 7.4 (6.3-8.2) g/dL Albumin 4.2 (3.5-5.1) g/dL Lipase 82 (23-300) U/L TSH (Reflex) 1.640 (0.465-4.68) uIU/mL Imaging Data Attestation: I personally reviewed and interpreted this imaging study as follows: Radiologist's impression: Impressions Chest X-Ray 11/21/24 21:47 IMPRESSION: No acute cardiopulmonary process. Discharge Plan Discharge Clinical Impression: Atypical chest pain, Costalchondritis Patient Disposition: Home Condition: Stable Instructions: Antibiotic Form, Costochondritis (ED) Additional Instructions: Please return to the ER with any worsening symptoms. Follow-up with primary care provider as soon as possible. Take all medications as prescribed, including regularly scheduled medications. You may use Tylenol and ibuprofen together for pain control. Please use muscle relaxants as needed for symptom relief. Patient Language: Georgian Prescriptions: New cyclobenzaprine 5 mg tablet 5 mg PO TID PRN (Reason: muscle spasm) Qty: 20 0RF No Action dicyclomine 10 mg capsule 10 mg PO TID PRN (Reason: abdominal pain) Qty: 60 2RF 1 mg-20 mcg (24)/75 mg (4) tablet 1 tablet PO DAILY sertraline 50 mg tablet See Rx Instructions .ROUTE .COMPLEX Qty: 90 1RF Dose Instruction: TAKE 1 TABLET BY MOUTH EVERY DAY Rx Instructions: TAKE 1 TABLET BY MOUTH EVERY DAY Follow-up/Referrals: Hyun Campbell, TROLLEY CAR MECHANIC-C [Primary Care Provider] - Time of Disposition: 00:38
[2024-11-21 22:33] LABS: Alanine Aminotransferase 21 U/L (6-35); Albumin Level 4.2 g/dL (3.5-5.1); Alkaline Phosphatase 54 U/L (38-126); Anion Gap 7 mmol/L (4-12); Aspartate Amino Transferase 25 U/L (14-36); Bilirubin,Total 0.4 mg/dL (0.2-1.3); Blood Urea Nitrogen 16 mg/dL (7-17); Calcium 9.5 mg/dL (8.4-10.2); Carbon Dioxide 22 mmol/L (22-30); Chloride 108 mmol/L (98-107); Estimated CRCL calculation 82 ml/min; Estimated Glomerular Filt Rate > 60; Glucose 106 mg/dL (65-110); Lipase 82 U/L (23-300); Potassium 3.6 mmol/L (3.4-5.0); Sodium 137 mmol/L (137-145); Total Protein 7.4 g/dL (6.3-8.2)
[2024-11-21 22:44] LABS: Troponin I < 0.012 ng/mL (0.000-0.034)
[2024-11-21] MEDS: ASPIRIN 81 MG CHEWABLE TABLET 324 MG PO (22:52)
[2024-11-21 23:01] LABS: Thyroid Stimulating Hormone Reflex 1.640 uIU/mL (0.465-4.68)
--- NOTE | 2024-11-21 23:36 | ECG_ITS ---
Test Date: 2024-11-21 23:46:50 Measurements Intervals [place] Rate: 53 P: 64 ME: 133 QRS: 72 QRSD: 82 T: 48 QT: 441 QTc: 415 Interpretive Statements SINUS BRADYCARDIA BASELINE ARTIFACT- I, II, III, AVR, AVL, AVF, V1-V6 BORDERLINE ECG Compared to ECG 11/21/2024 19:29:47 HEART RATE HAS DECREASED Electronically Signed On 11-22-2024 06:19:51 CDT by Jeremy Mcgowan D.O.
[2024-11-22 00:42] LABS: Troponin I < 0.012 ng/mL (0.000-0.034)
== END 2024-11-22 00:55 | disposition home or self-care (01) ==
PROVIDERS: Student in an Organized Health Care Education/Training Program; Emergency Provider Registered Nurse; PCP Nurse Practitioner Family
DX: R07.89 Other chest pain (principal); M94.0 Chondrocostal junction syndrome [Tietze]; F41.9 Anxiety disorder, unspecified; Z87.891 Personal history of nicotine dependence; K58.9 Irritable bowel syndrome, unspecified; Z79.3 Long term (current) use of hormonal contraceptives; Z79.899 Other long term (current) drug therapy; R00.1 Bradycardia, unspecified
CPT/HCPCS: 36415; 71046; 80053; 83690; 84443; 84484; 85025; 85380; 85610; 85730; 93005; 99284; A9270